=== PATIENT | male | born 1975 | race Caucasian/White ===

== ENCOUNTER 2016-06-13 23:40 | Inpatient (IN) | payer OTHER ==
--- NOTE | 2016-05-26 22:30 | NUR ---
PATIENT IS CURRENTLY RESTING IN BED NEEDS MET SLEEPING ON AND OFF.CALL LIGHT WITHIN REACH. Addendum: 06/16/16 at 0236 by Tiffany Goins LVN WRONG ENTRY
[~2016-06-13] VITALS: Ht 175.3 cm; Wt 107.5 kg
[2016-06-13 23:50] VITALS: BP 115/52
--- NOTE | 2016-06-13 23:50 | NUR ---
PT LENIN BLS. TAKEN TO BED 6
--- NOTE | 2016-06-13 23:50 | NUR ---
41Y M BIBA C/O LEFT LEG PAIN, SWELLING , AND AN OPEN WOUND .S/P POST OP 3.10. PATIENT ALERT AWAKE ORIENTED. THERE IS OPEN WOUNDS FROM BLISTER ON THE LEFT LEG THIGH AND CALF WITH SIGNS OF SWELLING . 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 ER MD MADE AWARE OF PT STATUS.
--- NOTE | 2016-06-14 00:12 | NUR ---
Dr. Andrew evaluating patient at bedside.
[2016-06-14] MEDS ORDERED: TUDORZA PR400 MCG/Ac IH (00:15)
[2016-06-14] MEDS ORDERED: HYDROmorphone PFS 2 MG/ML SYR IVP ONE (00:25)
[2016-06-14] MEDS ORDERED: NACL 0.9% 1,000 ML IV ONE (00:25)
[2016-06-14] MEDS ORDERED: PIPERACILLIN/TAZOBACTAM 3.375 GM in DEXTROSE 5% 50 ML IV ONE (00:40)
[2016-06-14] MEDS ORDERED: PREDNISONE20 MG PO (01:01)
[2016-06-14] MEDS ORDERED: MAGNESIUM OXID400 M1 PO (01:01)
[2016-06-14] MEDS ORDERED: POTASSIUM CHLO10 ME4 PO (01:01)
[2016-06-14] MEDS ORDERED: PROVENTIL2.5 MG/3 M INH (01:01)
[2016-06-14] MEDS ORDERED: PANTOPRAZOLE SO40 MG PO (01:01)
[2016-06-14] MEDS ORDERED: RANITIDINE HCL300 M1 PO (01:01)
[2016-06-14] MEDS ORDERED: LIDODERM5% TP (01:01)
[2016-06-14] MEDS ORDERED: AUGMENTIN 500 M1 TAB PO (01:01)
[2016-06-14] MEDS ORDERED: PRAZOSIN HYDROCH2 MG PO (01:01)
[2016-06-14] MEDS ORDERED: FLONASE NASAL50 MCG NS (01:01)
[2016-06-14] MEDS ORDERED: MASON NATURAL1000 IU PO (01:01)
[2016-06-14] MEDS ORDERED: [UNRECOGNIZED DRUG - CODE] PO (01:01)
[2016-06-14] MEDS ORDERED: PHENERGAN/CODEIN5 ML PO (01:01)
[2016-06-14] MEDS ORDERED: CLONAZEPAM0.5 MG PO (01:01)
[2016-06-14] MEDS ORDERED: PERCOCET 325 MG1 TA4 PO (01:01)
[2016-06-14] MEDS ORDERED: OXYCODONE HYDRO10 M2 PO (01:01)
[2016-06-14] MEDS ORDERED: BACTRIM DS 800/1 TAB PO (01:01)
[2016-06-14] MEDS ORDERED: IPRATROPIUM BR NEB (01:01)
[2016-06-14] MEDS ORDERED: REXULTI4 MG PO (01:01)
[2016-06-14] MEDS ORDERED: ASPIRIN81 M1 PO (01:01)
[2016-06-14] MEDS ORDERED: EPINEPHRINE IM (01:01)
[2016-06-14] MEDS ORDERED: SINGULAIR10 MG PO (01:01)
[2016-06-14] MEDS ORDERED: CUVITRU SQ (01:01)
[2016-06-14] MEDS ORDERED: LISINOPRIL2.5 M1 PO (01:01)
[2016-06-14] MEDS ORDERED: TEMAZEPAM30 MG PO (01:01)
[2016-06-14] MEDS ORDERED: ALPHAGAN P 5 ML5 M1 OP (01:01)
[2016-06-14] MEDS ORDERED: BUMEX1 MG PO (01:01)
[2016-06-14] MEDS ORDERED: METOPROLOL SUCC50 M1 PO (01:01)
[2016-06-14] MEDS ORDERED: NORVASC5 MG PO (01:01)
[2016-06-14] MEDS ORDERED: CYMBALTA60 MG PO (01:01)
[2016-06-14] MEDS ORDERED: IPRATROPIUM BR IH (01:01)
[2016-06-14] MEDS ORDERED: TIZANIDINE4 MG PO (01:01)
[2016-06-14] MEDS ORDERED: ZYRTEC10 MG PO (01:01)
[2016-06-14] MEDS ORDERED: LORAZEPAM0.5 M1 PO (01:01)
[2016-06-14] MEDS ORDERED: PROVENTIL HFA M18 GM INH (01:01)
[2016-06-14] MEDS ORDERED: THEOPHYLLINE PO (01:01)
[2016-06-14] MEDS ORDERED: GABAPENTIN600 MG PO (01:01)
[2016-06-14] MEDS ORDERED: ONDANSETRON4 M2 PO (01:01)
[2016-06-14] MEDS ORDERED: PIPERACILLIN/TAZOBACTAM 3.375 GM VIAL IV ONE ×2 (01:04→04:09)
--- NOTE | 2016-06-14 01:40 | NUR ---
Ultrasound at bedside.
[2016-06-14] MEDS ORDERED: NACL 0.9% 3,000 ML IV ONE (01:55)
[2016-06-14] MEDS ORDERED: ACETAMINOPHEN 325 MG TAB PO PRN (02:50)
[2016-06-14] MEDS ORDERED: ONDANSETRON 4 MG/2 ML VIAL IVP PRN (02:50)
[2016-06-14] MEDS ORDERED: VANCOMYCIN PER PHARMACY MC PRN (02:50)
[2016-06-14] MEDS ORDERED: HYDROcodone/APAP 7.5/325 MG 1 TAB PO PRN (02:50)
--- NOTE | 2016-06-14 02:56 | NUR ---
Patient will be admitted to care of DR SPRAGUE. Admited to MED-SURG. Will go to room 106A. Belongings list completed. Report to AUGUSTINE DAVID.
--- NOTE | 2016-06-14 02:59 | NUR ---
Note afua in EDM - 06/14/16 at 0300 by CATARINO Patient will be admitted to care of DR SPRAGUE. Admited to MED-SURG. Will go to [id number]. Belongings list completed. Report to AUGUSTINE DAVID.
[2016-06-14 03:05] VITALS: BP 128/70
--- NOTE | 2016-06-14 03:05 | NUR ---
PATIENT IS CURRENTLY AWAKE ALERT ORIENTED ADMIT DX POST-OP WND INFECTION AND CELLULITIS OF LEFT LEG PATIENT'S LT LEG WITH DRESSING AT THIS TIME.PATIENT HAS MULTIPLE ALLERGIES ALLERGY BAND APPLIED.PATIENT GAIT IS UNSTEADY BOTH LOWER EXTREMITIES WITH NON PITTING EDEMA NOTED.PATIENT HAS VERY DRY FEET AND HAS MULTIPLE PURPLISH DISCOLORATIONS TO HIS ABDOMEN PATIENT STATES,"HE WAS GETTING HEPARIN IN ANOTHER FACILITY AND HE TAKES ANOTHER MEDICATION SUBQTANEOUS WELL.PATIENT WAS GIVEN THE URINAL TO VOID AND PATIENT HAS BEEN USING IT.IV SITE REMAINS PATENT PLAN OF CARE DISCUSSED WITH THE PATIENT
[2016-06-14] MEDS: MORPHINE SULFATE 2 MG/ML SYR IVP PRN ×5 (03:47→19:25)
[2016-06-14] MEDS ORDERED: VANCOMYCIN 1GM/DEXT 5% PREMIX 400 ML IV SCH (04:00)
[2016-06-14] MEDS ORDERED: VANCOMYCIN 1,000 MG VIAL ONE ×2 (04:10→04:40)
--- NOTE | 2016-06-14 04:37 | NUR ---
GAVE PT 2G OF VANCO IN 500 ML D5% AT 170 ML/HR PER PHARMACY. PHARMACIST STATED THAT BASED ON PT'S WEIGHT THIS IS THE NEEDED DOSE. CHARGE NURSE AWARE.
--- NOTE | 2016-06-14 05:40 | NUR ---
PATIENT RESTING IN BED AT THIS TIME,WILL CONTINUE TO MONITOR.CALL LIGHT WITHIN REACH.
[2016-06-14] MEDS: PIPER/TAZO 3.375GM/D5W PREMIX 50 ML IV SCH ×3 (06:00→17:28)
--- NOTE | 2016-06-14 06:42 | NUR ---
0600 ZOSYN NOT GIVEN YET. VANCOMYCIN STILL INFUSING AT THIS TIME. WILL ENDORSED TO DAY SHIFT NURSE.
--- NOTE | 2016-06-14 07:13 | NUR ---
PATIENT HAS BEEN SCREENED AND CATEGORIZED MODERATE NUTRITION RISK. PATIENT WILL BE SEEN WITHIN 3-5 DAYS OF ADMISSION. 06/15/16-06/17/16 JAME NAVARRO MS, RDN Addendum: 06/16/16 at [address] CORRECTION ON DATE: 06/16/16-06/18/[address]
--- NOTE | 2016-06-14 07:25 | NUR ---
ENDORSED JOANN CAPONE THE SCHEDULED 0600 ZOSYN TO ADMINISTER WHEN VANCOMYCIN IS FINISHED.
--- NOTE | 2016-06-14 07:27 | NUR ---
PATIENT STABLE RESTING IN BED REPORT ENDORSED TO JOANN CAPONE.
--- NOTE | 2016-06-14 07:40 | NUR ---
RECEIVED PT LYING IN BED AAOX4, PLEASANT AND COOPERATIVE. C/O PAIN 7/10 IN HIS LEFT LOWER EXTREMITY AND SAME NOTED TO BE SWOLLEN WITH DRESSINGS TO THIGH AND LEG AREAS. SAME NOTED TO BE DRY AND INTACT. SHIFT ASSESSMENT DONE AND CHARTED. WILL MEDICATE PT FOR PAIN PER PRN ORDER. PLAN OF CARE, MEDS, TREATMENTS AND SAFETY DISCUSSED WITH PT AND PT VERBALIZED UNDERSTANDING. WILL CONTINUE TO MONITOR PT.
[2016-06-14 08:00] VITALS: BP_SYST 105; BP_SYST 139; BP_DIAS 66; BP_DIAS 84
--- NOTE | 2016-06-14 08:10 | NUR ---
DR. SPRAGUE WAS IN TO SEE PT AND MD LEFT NEW ORDERS. PT'S DRESSINGS TO LT UPPER THIGH NOTED TO BE WET AND SAME CHANGED . PT TOLERATED THE PROCEDURE WELL. WILL CONTINUE TO MONITOR PT.
--- NOTE | 2016-06-14 08:43 | NUR ---
PT MEDICATED WITH MORPHINE 2 MG IVP PER PRN ORDER FOR C/O LEFT LOWER EXTREMITY PAIN 09/15. SAME EXTREMITY NOTED TO BE EDEMATOUS.
[2016-06-14] MEDS ORDERED: VANCOMYCIN 1GM/DEXT 5% PREMIX 200 ML IV SCH (09:00)
--- NOTE | 2016-06-14 09:15 | NUR ---
PT NOTED TO HAVE HIS EYES CLOSED WHEN CHECKED. PT STATED THAT HIS PAIN WAS STILL THERE BUT BETTER THAN EARLIER 07/16.
[2016-06-14] MEDS ORDERED: NON-FORMULARY ITEM (Oxycodone HCl/Acetaminophen (Percocet 10-325 mg Tablet) 1 TAB) PO PRN (11:25)
[2016-06-14] MEDS ORDERED: ONDANSETRON 4 MG ODT PO PRN (11:25)
[2016-06-14] MEDS ORDERED: ALBUTEROL HFA MDI 90 MCG/ACTUATION 8 GM INH PRN (11:25)
[2016-06-14] MEDS ORDERED: [UNRECOGNIZED DRUG - OTHER] SQ SCH (11:25)
[2016-06-14] MEDS ORDERED: IMMUNE GLOBULIN SQ SCH (11:25)
[2016-06-14] MEDS ORDERED: EPINEPHRINE IM PRN (11:25)
[2016-06-14] MEDS ORDERED: IPRATROPIUM 0.02% 0.5 MG/2.5 ML NEBU INH PRN (11:25)
--- NOTE | 2016-06-14 12:30 | NUR ---
PT TOOK DIET AND FLUIDS WELL. NO CHANGES NOTED IN PT'S CONDITION.
[2016-06-14] MEDS ORDERED: NON-FORMULARY ITEM (Potassium Chloride 1 CAP) PO SCH (13:00)
[2016-06-14] MEDS: clonazePAM 0.5 MG TAB PO SCH ×2 (13:00→17:25)
[2016-06-14] MEDS ORDERED: NON-FORMULARY ITEM (Brimonidine Tartrate* (Alphagan P 0.1% Ophthalmic Soln*) 1 DROP) OP SCH (13:00)
[2016-06-14] MEDS ORDERED: OXYCODONE HCL PO SCH ×2 (13:00)
[2016-06-14] MEDS ORDERED: GABAPENTIN PO SCH (13:00)
--- NOTE | 2016-06-14 13:24 | NUR ---
PT MEDICATED WITH MORPHINE PER PRN ORDER IVP FOR LEFT LOWER EXTREMITY PAIN 10/16. DRESSINGS TO LEFT THIGH NOTED TO BE SOAKED AGAIN WITH CLEAR TO LIGHT YELLOW DRAINAGE AND SAME CLEANSED WITH NORMAL SALINE AND WET TO DRY DRESSINGS, ABDOMINAL PAD AND KERLIX APPLIED TO SITE. WILL CONTINUE TO CHECK ON PT.
[2016-06-14] MEDS: ALBUTEROL 0.083% 2.5 MG/3 ML NEBU INH SCH ×2 (13:27→19:17)
[2016-06-14] MEDS: IPRATROPIUM 0.02% 0.5 MG/2.5 ML NEBU INH SCH ×2 (13:27→19:17)
--- NOTE | 2016-06-14 14:00 | NUR ---
PT STATED THAT HIS PAIN WAS 6/10 WHEN CHECKED. WILL CONTINUE TO CHECK PT.
[2016-06-14] MEDS: tiZANidine 4 MG TAB PO SCH ×2 (15:22→19:22)
--- NOTE | 2016-06-14 15:23 | NUR ---
PT MEDICATED WITH MORPHINE PER PRN ORDER FOR LEFT THIGH PAIN 09/15. WILL CONTINUE TO CHECK PT.
--- NOTE | 2016-06-14 16:30 | NUR ---
DR. MALDONADO WAS IN TO SEE PT AND SAW PT'S WOUND AND PUT PACKING IN LEFT THIGH WOUND. ABDOMINAL PAD AND ELASTIC BANDAGE APPLIED TO SITE. LEFT LEG WOUNDS ALSO COVERED WITH DRY DRESSINGS AND ABDOMINAL PADS AND ELASTIC BANDAGE APPLIED. PT TOLERATED IT WELL.
[2016-06-14] MEDS ORDERED: TEMAZEPAM 15 MG CAP PO PRN (18:55)
[2016-06-14] MEDS ORDERED: oxyCODONE/APAP 5/325 MG 1 TAB TAB PO PRN (18:55)
--- NOTE | 2016-06-14 19:25 | NUR ---
REPORT GIVEN TO AUGUSTINE WAY AT BEDSIDE. PT RECEIVING BREATHING TREATMENT AT THE TIME. PT MEDICATED FOR PAIN 8/10 IN HIS LEFT LOWER EXTREMITY WITH MORPHINE PER PRN ORDER.
--- NOTE | 2016-06-14 19:30 | NUR ---
PATIENT IS CURRENTLY AWAKE ALERT RESTING IN BED AT THIS TIME.DRESSING TO LT LOWER LEG AND LT THIGH IS CURRENTLY DRY AND INTACT.PATIENT CONTINUES TO USE THE URINAL AND IS ABLE TO MAKE NEEDS KNOWN.CALL LIGHT WITHIN REACH WILL CONTINUE TO MONITOR.
[2016-06-14 20:00] VITALS: BP 101/55
--- NOTE | 2016-06-14 20:00 | NUR ---
Patient's Plan of Care was discussed and reviewed with PORT STEWARD: AUGUSTINE POSEY
[2016-06-14] MEDS: PROMETH/CODEINE 6.25-10MG/5ML 5 ML UDC PO SCH (20:40)
[2016-06-14] MEDS: BUMETANIDE 1 MG TAB PO SCH (20:40)
--- NOTE | 2016-06-14 20:40 | NUR ---
EDUCATION GIVEN ON ROUTINE NIGHT MEDICATION AND PATIENT TOOK THE MEDICATION WELL.
[2016-06-14] MEDS: DULoxetine 30 MG CAPDR PO SCH (20:41)
[2016-06-14] MEDS: THEOPHYLLINE 300 MG TABER PO SCH (20:41)
[2016-06-14] MEDS ORDERED: TEMAZEPAM 30 MG PO SCH (21:00)
[2016-06-14] MEDS ORDERED: ACLIDINIUM BROMIDE 400 MCG IH SCH (21:00)
--- NOTE | 2016-06-14 21:00 | NUR ---
PATIENT DRESSING TO UPPER THIGH IS SOILED SEROSANGUINOUS DRAINAGE.I REMOVED THE DRESSING AND PACKING FROM THE LT THIGH CLEANED THE WOUND WITH NORMAL SALINE AND WET THE GAUZE TO PACK THE INNER THIGH WOUND, AND THEN I PLACED AN ABD PAD DRESSING OVER THE PACKING AND WRAPPED IT WITH ROLLER GAUZE.PATIENT TOLERATED PROCEDURE WELL. WILL CONTINUE TO MONITOR.
[2016-06-15] MEDS: tiZANidine 4 MG TAB PO SCH ×4 (00:26→18:26)
--- NOTE | 2016-06-15 00:30 | NUR ---
PATIENT IS SLEEPING AT THIS TIME.DRESSING TO LT THIGH AND LOWER LEG CURRENTLY DRY AND INTACT.CALL LIGHT WITHIN REACH WILL CONTINUE TO MONITOR.
[2016-06-15] MEDS: PIPER/TAZO 3.375GM/D5W PREMIX 50 ML IV SCH ×4 (00:57→17:34)
--- NOTE | 2016-06-15 02:08 | NUR ---
PATIENT SLEEPING QUIETLY IN BED NO PAIN OR DISCOMFORT NOTED.WILL CONTINUE TO MONITOR.
--- NOTE | 2016-06-15 04:45 | NUR ---
PATIENT STABLE SLEEPING,NEEDS CONTINUE TO BE MET PATIENT IN NO DISTRESS WILL CONTINUE TO MONITOR.CALL LIGHT WITHIN REACH.
[2016-06-15 05:00] VITALS: BP 95/59
[2016-06-15] MEDS: MORPHINE SULFATE 2 MG/ML SYR IVP PRN ×3 (05:15→20:32)
--- NOTE | 2016-06-15 06:30 | NUR ---
PATIENT AWAKE ALERT RESTING IN BED STABLE REPORT ENDORSED TO JOANN CAPONE AT BEDSIDE.
[2016-06-15] MEDS: ALBUTEROL 0.083% 2.5 MG/3 ML NEBU INH SCH ×2 (06:42→16:56)
[2016-06-15] MEDS: IPRATROPIUM 0.02% 0.5 MG/2.5 ML NEBU INH SCH ×5 (06:42→21:00)
--- NOTE | 2016-06-15 06:46 | NUR ---
PATIENT CURRENTLY GETTING A BREATHING TREATMENT.
--- NOTE | 2016-06-15 07:46 | NUR ---
RECEIVED PT AAOX4, PLEASANT AND COOPERATIVE. PT STATED THAT HIS PAIN IN HIS LEFT LOWER EXTREMITY WAS 7/10. PT WILL BE MEDICATED PER PRN ORDER. SHIFT ASSESSMENT DONE AND CHARTED. PLAN OF CARE, MEDS, TREATMENTS AND SAFETY DISCUSSED WITH PT AND PT VERBALIZED UNDERSTANDING. DRESSINGS TO LEFT LEG AND THIGH NOTED TO BE CLEAN, DRY AND INTACT AT THIS TIME. WILL CONTINUE TO CHECK ON PT.
[2016-06-15 08:00] VITALS: BP 99/72
[2016-06-15] MEDS: DULoxetine 30 MG CAPDR PO SCH ×2 (08:34→20:22)
[2016-06-15] MEDS: predniSONE 10 MG TAB PO SCH (08:34)
[2016-06-15] MEDS: CHOLECALCIFEROL 1,000 IU TAB PO SCH (08:35)
[2016-06-15] MEDS: PANTOPRAZOLE 40 MG TABEC PO SCH (08:35)
[2016-06-15] MEDS: oxyCODONE 10 MG TABER PO SCH ×3 (08:36→18:26)
[2016-06-15] MEDS: BUMETANIDE 1 MG TAB PO SCH ×2 (08:37→20:21)
[2016-06-15] MEDS: THEOPHYLLINE 300 MG TABER PO SCH ×2 (08:37→20:22)
[2016-06-15] MEDS: clonazePAM 0.5 MG TAB PO SCH ×3 (08:37→17:28)
[2016-06-15] MEDS: ASPIRIN 81 MG TAB.CHEW PO SCH (08:38)
[2016-06-15] MEDS: LORazepam 0.5 MG TAB PO SCH (08:38)
[2016-06-15] MEDS: POTASSIUM CHLORIDE 10 MEQ TABER PO SCH ×3 (08:39→17:23)
[2016-06-15] MEDS: MAGNESIUM OXIDE 400 MG TAB PO SCH (08:39)
[2016-06-15] MEDS: MONTELUKAST SODIUM 10 MG TAB PO SCH (08:40)
[2016-06-15] MEDS: amLODIPine 5 MG TAB PO SCH (09:00)
[2016-06-15] MEDS ORDERED: clonazePAM 0.5 MG TAB PO SCH (09:00)
[2016-06-15] MEDS ORDERED: BREXPIPRAZOLE 4 MG PO SCH (09:00)
[2016-06-15] MEDS ORDERED: predniSONE 20 MG TAB PO SCH ×2 (09:00)
[2016-06-15] MEDS ORDERED: CHOLECALCIFEROL 5000 UNIT PO SCH (09:00)
[2016-06-15] MEDS ORDERED: LORazepam 1 MG TAB PO SCH (09:00)
[2016-06-15] MEDS ORDERED: COMMUNICATION ORDER MC SCH (09:00)
[2016-06-15] MEDS: LISINOPRIL 10 MG TAB PO SCH (09:00)
[2016-06-15] MEDS ORDERED: NON-FORMULARY ITEM (Lisinopril 1 TAB) PO SCH (09:00)
[2016-06-15] MEDS ORDERED: NON-FORMULARY ITEM (Cetirizine HCl (Zyrtec) 1 TAB) PO SCH (09:00)
[2016-06-15] MEDS ORDERED: VITAMIN D 400 IU TAB PO SCH (09:00)
[2016-06-15] MEDS: GABAPENTIN 300 MG CAP PO SCH ×3 (10:05→17:23)
--- NOTE | 2016-06-15 12:31 | NUR ---
MORPHINE 2 MG IVP GIVEN PER PRN ORDER FOR C/O PAIN 8/ IN PT'S LT LOWER EXTREMITY. SAME NOTED TO BE EDEMATOUS. 1300 DOSE OF OXYCONTIN AND KLONOPIN NOT GIVEN THE INTERVAL BETWEEN THE DOSES WERE TOO CLOSE AND PT DID NOT WANT TO TAKE THEM AT THIS TIME. PT'S BP MED WERE NOT GIVEN PT STATED TO HOLD IT FOR NOW HIS BP IN AM WAS LOW AND PRESENT ONE WAS NORMAL. BP- 110/72 WILL CONTINUE TO MONITOR PT.
--- NOTE | 2016-06-15 13:00 | NUR ---
DR. SPRAGUE WAS IN TO SEE PT AND MD LEFT NEW ORDERS.
--- NOTE | 2016-06-15 13:45 | NUR ---
PT TRANSFERRED TO 119 A PER BED IN A STABLE CONDITION. PT'S LEFT THIGH DRESSINGS NOTED TO BE WET AND SAME REMOVED WITH PACKING NOTED TO HAVE SERO SANGIUNOUS DRAINAGE. NEW GAUZE PACKING APPLIED WITH NS PER MD'S ORDER AND ABDOMINAL PADS AND ELASTIC BANDAGE APPLIED AFTER. PT TOLERATED THE PROCEDURE WELL.
[2016-06-15] MEDS ORDERED: VANCOMYCIN 1,250 MG in DEXTROSE 5% 250 ML IV SCH (14:00)
[2016-06-15 16:00] VITALS: BP 132/71
--- NOTE | 2016-06-15 16:00 | NUR ---
PHONED DR. MALDONADO RE DISCHARGE ORDER MADE BY DR. SPRAGUE. CALLED BACK AND STATED THAT PT IS NOT READY TO BE DISCHARGED.
--- NOTE | 2016-06-15 17:30 | NUR ---
LT LEG WOUNDS DRESSINGS CHANGED WITH. NOTED SERO SANGUINOUS DRAINAGE FROM OLD DRESSINGS. WET TO DRY DRESSINGS ABDOMINAL PAD AND KERLIX APPLIED TO SITE. PT TOLERATED IT WELL.
[2016-06-15] MEDS: METOPROLOL SUCCINATE 50 MG TABER PO SCH (17:35)
--- NOTE | 2016-06-15 18:41 | NUR ---
PT TOOK DIET AND FLUIDS WELL. PT STATED THAT HIS PT WAS LESS AT THIS TIME 5/10 IN HIS LT LOWER EXTREMITY.
--- NOTE | 2016-06-15 19:15 | NUR ---
REPORT GIVEN TO INCOMING HYDROGEN POWER PLANT MANAGER AUGUSTINE. NO CHANGES NOTED IN PT'S CONDITION.
--- NOTE | 2016-06-15 19:16 | NUR ---
PATIENT IS CURRENTLY RESTING IN BED NEEDS MET DENIES PAIN AT THIS TIME,DRESSING TO LT THIGH DRESSING REMAINS INTACT AT THIS TIME.WILL CONTINUE TO MONITOR.CALL LIGHT WITHIN REACH.
[2016-06-15 20:00] VITALS: BP 143/85
--- NOTE | 2016-06-15 20:00 | NUR ---
Patient's Plan of Care was discussed and reviewed with CHILD CARE COOK: AUGUSTINE CONNELLY
[2016-06-15] MEDS: PROMETH/CODEINE 6.25-10MG/5ML 5 ML UDC PO SCH (20:25)
--- NOTE | 2016-06-15 21:54 | NUR ---
PT REFUSED TX, SECOND ATTEND, HE SAID THAT HE IS FEELING GOOD AND DOES NOT NEEDED TX, PT IS NOT IN ANY RESP DISTRESS , RN NOTIFIED,
--- NOTE | 2016-06-15 22:30 | NUR ---
PATIENT IS CURRENTLY RESTING IN BED NEEDS MET SLEEPING ON AND OFF.CALL LIGHT WITHIN REACH.
[2016-06-15] MEDS: VANCOMYCIN 1,250 MG in DEXTROSE 5% 250 ML IV SCH (22:59)
[2016-06-16] VITALS: BP 124/74
[2016-06-16] MEDS: tiZANidine 4 MG TAB PO SCH ×4 (00:48→17:13)
--- NOTE | 2016-06-16 00:58 | NUR ---
ROUNDS MADE PATIENT IS CURRENTLY STABLE DENIES PAIN DRESSING TO LT THIGH IS DRY AND INTACT AT THIS TIME WILL CONTINUE TO MONITOR.CALL LIGHT WITHIN REACH.
[2016-06-16] MEDS: PIPER/TAZO 3.375GM/D5W PREMIX 50 ML IV SCH ×4 (01:44→17:15)
--- NOTE | 2016-06-16 02:36 | NUR ---
PATIENT SLEEPING COMFORTABLY IN BED WILL CONTINUE TO MONITOR.
--- NOTE | 2016-06-16 04:34 | NUR ---
PATIENT SLEEPING COMFORTABLY IN BED WILL CONTINUE TO MONITOR.CALL LIGHT WITHIN REACH WILL CONTINUE TO MONITOR.
[2016-06-16] MEDS: MORPHINE SULFATE 2 MG/ML SYR IVP PRN (05:31)
--- NOTE | 2016-06-16 06:55 | NUR ---
PATIENT CURRENTLY STABLE RESTING IN BED.CALL LIGHT WITHIN REACH.
[2016-06-16] MEDS ORDERED: IPRATROPIUM 0.02% 0.5 MG/2.5 ML NEBU INH PRN (07:06)
--- NOTE | 2016-06-16 07:15 | NUR ---
PATIENT STABLE RESTING IN BED REPORT ENDORSED TO JOANN ALVARADO SHE WILL RESUME CARE OF THE PATIENT.
--- NOTE | 2016-06-16 07:16 | NUR ---
RECEIVED REPORT FROM THE ARCHIVAL RECORDS CLERK NURSE AT BEDSIDE. PT IS ASLEEP. NO SIGNS OF DISTRESS. WILL BE BACK TO ASSESS PT.
[2016-06-16] MEDS: IPRATROPIUM 0.02% 0.5 MG/2.5 ML NEBU INH SCH ×3 (07:59→19:20)
[2016-06-16 08:00] VITALS: BP 111/65
[2016-06-16] MEDS: POTASSIUM CHLORIDE 10 MEQ TABER PO SCH ×3 (08:47→17:12)
[2016-06-16] MEDS: ASPIRIN 81 MG TAB.CHEW PO SCH (08:47)
[2016-06-16] MEDS: BUMETANIDE 1 MG TAB PO SCH ×2 (08:47→20:29)
[2016-06-16] MEDS: MONTELUKAST SODIUM 10 MG TAB PO SCH (08:47)
[2016-06-16] MEDS: clonazePAM 0.5 MG TAB PO SCH ×3 (08:47→17:15)
[2016-06-16] MEDS: LORazepam 0.5 MG TAB PO SCH (08:48)
[2016-06-16] MEDS: GABAPENTIN 300 MG CAP PO SCH ×3 (08:48→17:12)
[2016-06-16] MEDS: amLODIPine 5 MG TAB PO SCH (08:49)
[2016-06-16] MEDS: LISINOPRIL 10 MG TAB PO SCH (08:49)
[2016-06-16] MEDS: METOPROLOL SUCCINATE 50 MG TABER PO SCH (08:49)
[2016-06-16] MEDS: LORATADINE 10 MG TAB PO SCH (08:50)
[2016-06-16] MEDS: THEOPHYLLINE 300 MG TABER PO SCH ×2 (08:50→20:34)
[2016-06-16] MEDS: MAGNESIUM OXIDE 400 MG TAB PO SCH (08:50)
[2016-06-16] MEDS: CHOLECALCIFEROL 1,000 IU TAB PO SCH (08:50)
[2016-06-16] MEDS: DULoxetine 30 MG CAPDR PO SCH ×2 (08:51→20:36)
[2016-06-16] MEDS: PANTOPRAZOLE 40 MG TABEC PO SCH (08:51)
[2016-06-16] MEDS: predniSONE 10 MG TAB PO SCH (08:52)
[2016-06-16] MEDS: oxyCODONE 10 MG TABER PO SCH ×3 (08:53→17:13)
[2016-06-16] MEDS: VANCOMYCIN 1,250 MG in DEXTROSE 5% 250 ML IV SCH ×2 (09:01→22:15)
--- NOTE | 2016-06-16 09:02 | NUR ---
ADMINISTERED MORNING MEDS. PT TOLERATED WELL. THE WOUND CARE NURSE IS HERE TO DO WOUND CONSULT.
--- NOTE | 2016-06-16 09:05 | NUR ---
WOUND CARE EVALUATION NOTES: REASON FOR EVALUATION: LEFT MEDIAL THIGH OPEN WOUND COMPLETE SKIN ASSESSMENT DONE ON THIS 41 Y/O MALE PATIENT [facility], WITH INITIAL DIAGNOSIS OF INFECTED POST OP WOUND LEFT THIGH. PAST MEDICAL HISTORY INCLUDE OBESITY, HYPERTENSION AND LLE CELLULITIS AND COMPARTMENT SYNDROME. ALL ABOVE INFORMATION WAS OBTAINED FROM THE ADMISSION H&P AND THE PATIENT HIMSELF. LABS ARE WBC 6.6, H/H 8.2/24.3, GLUCOSE 65, ALBUMIN 2.9, PT/INR 10.2/1.1 AND PTT 22.1. CURRENT MEDS INCLUDE VANCOMYCIN, OXYCONTIN, PREDNISONE, ATIVAN, ASPIRIN, CLONAZEPAM, ZOSYN AND NORCO. PATIENT IS AWAKE, ORIENTED TO PERSON, PLACE, DATE AND TIME. SKIN WARM TO TOUCH WNL, TOENAILS WNL, WITH HAIR GROWTH, +3 EDEMA TO LEFT FOOT, NO EDEMA TO RIGHT FOOT, +2 RIGHT PEDAL PULSE AND UNABLE TO PALPATE LEFT PEDAL PULSES DUE TO EDEMA. URINE AND BOWEL CONTINENT, ABLE TO MAKE HIS NEEDS KNOWN. ABLE TO TURN SELF WITH MINIMAL ASSISTANCE. INITIAL PLAN OF CARE AND PRESSURE PREVENTIVE MEASURES DISCUSSED, ABLE TO VERBALIZE UNDERSTANDING. INTEGUMENTARY: LEFT MEDIAL THIGH - SURGICAL - S/[facility] LEFT ANTERIOR LOWER EXTREMITY - SURGICAL LEFT LATERAL LE - SURGICAL RIGHT MEDIAL KNEE - PINK SCARRING RECOMMENDATIONS: -CLEANSE LEFT MEDIAL THIGH WITH NS AND GAUZE, PAT DRY, APPLY WOUND VAC BLACK FOAM DRESSING Q 3 DAYS AND PRN WITH SOILING/DISPLACEMENT. CHECK DRESSING PLACEMENT DAILY AND PRN WITH SOILING/DISPLACEMENT -CLEANSE LEFT ANTRIOR LOWER EXTREMITY WITH NS AND GAUZE, PAT DRY, COVER WITH XEROFORM, ABD PAD AND WRAP WITH TORSTEN Q 3 DAYS AND PRN WITH SOILING/DISPLACEMENT. CHECK DRESSING PLACEMENT DAILY -CLEANSE LEFT LATERAL LOWER EXTREMITY WITH NS AND GAUZE, PAT DRY, COVER WITH FOAM DRESSING AND WRAP WITH TORSTEN Q 3 DAYS AND PRN WITH SOILING/DISPLACEMENT. CHECK DRESSING PLACEMENT DAILY --TURN AND REPOSITION PATIENT Q2H -ASSESS AND MONITOR SKIN CONDITION DURING POSITION CHANGE, PLEASE PAY PARTICULAR ATTENTION TO SACRALCOCCYX, ELBOWS AND HEELS -OFFLOAD BILATERAL HEELS BY PLACING PILLOWS UNDER CALVES AT ALL TIMES, UNLESS OTHERWISE CONTRAINDICATED KEEP SKIN CLEAN AND DRY AT ALL TIMES. RECOMMENDATIONS DISCUSSED WITH PRIMARY RN AND SURGEON. WILL FOLLOW UP PATIENT Q 3 DAYS AND PRN. PLEASE CONTACT [facility] FOR ANY CONCERNS, QUESTIONS AND CHANGES IN SKIN CONDITION.
--- NOTE | 2016-06-16 10:40 | NUR ---
PT IS SITTING IN BED, ON THE PHONE. CANCELLING HIS 'S APPT FOR TODAY. MAKING OTHER APPOINTMENTS. WAITING FOR THE WOUND VAC (ETA AROUND NOON). WILL CONTINUE TO MONITOR PT.
[2016-06-16] MEDS ORDERED: FOAM DRESSING TP PRN (12:25)
[2016-06-16] MEDS ORDERED: OIL EMULSION DRESSING TP PRN (12:25)
--- NOTE | 2016-06-16 12:30 | NUR ---
MIX UP WITH LUNCH TRAY. IT WASN'T WHAT HE HAD ORDERED. I CALLED DIETARY AND REQUESTED A NEW TRAY. PT SITTING UP IN BED TALKING ON THE PHONE. NO COMPLAINTS AT THIS TIME. WILL CONTINUE TO MONITOR PT.
[2016-06-16] MEDS ORDERED: FOAM DRESSING TP SCH (13:00)
[2016-06-16] MEDS ORDERED: OIL EMULSION DRESSING TP SCH (13:00)
--- NOTE | 2016-06-16 14:08 | NUR ---
PT IS WITH SS.
--- NOTE | 2016-06-16 15:06 | NUR ---
1350 MET WITH PT AT BEDSIDE. STATED THAT HE IS CURRENTLY ON SERVICE WITH [facility] AND HE WANTS TO RESUME SERVICE WHEN DISCHARGED. INFORMED PT THAT I HAD RECEIVED A CALL FROM ELENA AT [facility] [phone] REQUESTING INFORMATION REGARDING HOSPITALIZATION AND CONDITION. ELENA HAD SAID THAT THEY HAD BEEN TRYING TO REACH PT AT HOME THEIR COMPANY MAKES HOME VISITS. INFORMED PT THAT I INFORMED ELENA THAT INFORMATION REGARDING PT'S HOSPITALIZATION COULD NOT BE GIVEN WITHOUT PT PERMISSION. PT STATED THAT [employer] IS A COMPANY WHOSE PURPOSE IS TO PROVIDE SERVICES AT HOME TO TRY TO PREVENT HOSPITALIZATIONS BUT HE STATED "THEY'RE NOT VERY HELPFUL AND DON'T COME OUT WHEN YOU NEED THEM. I DON'T WANT THEM TO HAVE ANY INFORMATION ABOUT ME". PT STATED THAT HE IS VERY PLEASED WITH HIS CARE AND IS AWARE THAT HE WILL BE HAVING A WOUND VAC APPLIED. DISCUSSED WITH HIM THAT PRIOR TO DISCHARGE ARRANGEMENTS FOR WOUND VAC WILL BE MADE AND ORDERS PROVIDED TO [facility].
--- NOTE | 2016-06-16 15:11 | NUR ---
IN WITH THE PT WITH GOLDIE, THE WOUND CARE NURSE. ASSISTED WITH THE WOUND VAC. EXTENSIVE EDUCATION ON THE USE. PT VERBALIZED UNDERSTANDING. PT TOLERATED WELL. WILL CONTINUE TO MONITOR PT.
--- NOTE | 2016-06-16 15:22 | NUR ---
WOUND CARE NOTES: WOUND VAC APPLIED TO LEFT MEDIAL THIGH. MACHINE FUNCTIONING WELL. PATIENT TOLERATED PROCEDURE WELL. CONCERNS AND QUESTIONS ANSWERED.
[2016-06-16 16:00] VITALS: BP 99/63
--- NOTE | 2016-06-16 17:00 | NUR ---
PT IS RESTING COMFORTABLY. NO SIGNS OF DISTRESS. NO COMPLAINTS. WILL CONTINUE TO MONITOR PT.
--- NOTE | 2016-06-16 19:30 | NUR ---
ENDORSED PT TO THE NIGHTSHIFT NURSE AT BEDSIDE FOR CONTINUITY OF CARE. PT IS IN STABLE CONDITION. WOUND VAC DRAINAGE AROUND 100ML.
--- NOTE | 2016-06-16 19:30 | NUR ---
RECD. RESTING IN BED, AWAKE, A/OX4. RESPIRATION EVEN AND UNLABORED. IV OF NS AT TKO INFUSING, RIGHT HAND G22. WOUND VAC CONNECTED TO LEFT THIGH WOUND DRAINING MODERATE AMOUNT OF VERY LIGHT ORANGE FLUID. INCISION IN THE LEFT THIGH WITH KARINA OPEN TO AIR DRY AND INTACT. WOUND IN THE LEFT LOWER LEG COVERED WITH DRESSING DRY AND INTACT. PAIN IN THE LEFT LEG 03/18, CLAIMED TOLERABLE. PLAN OF CARE FOR THE SHIFT DISCUSSED. VERBALIZED UNDERSTANDING.
[2016-06-16 20:00] VITALS: BP 130/72
--- NOTE | 2016-06-16 20:00 | NUR ---
Patient's Plan of Care was discussed and reviewed with CREPING MACHINE OPERATOR: MARQUES IZQUIERDO
[2016-06-16] MEDS: PROMETH/CODEINE 6.25-10MG/5ML 5 ML UDC PO SCH (20:34)
--- NOTE | 2016-06-16 22:15 | NUR ---
SLEEPING COMFORTABLY IN BED. VANCOMYCIN IVPB INFUSED BY JOANN KRUGER.
[2016-06-17] MEDS: PIPER/TAZO 3.375GM/D5W PREMIX 50 ML IV SCH ×4 (00:17→17:09)
--- NOTE | 2016-06-17 02:00 | NUR ---
AWAKE IN BED, REQUESTED FOR HOT WATER FOR CHOCOLATE DRINK.
[2016-06-17] MEDS: tiZANidine 4 MG TAB PO SCH ×4 (06:11→17:05)
[2016-06-17] MEDS: IPRATROPIUM 0.02% 0.5 MG/2.5 ML NEBU INH SCH ×3 (07:08→17:11)
[2016-06-17] MEDS: ALBUTEROL 0.083% 2.5 MG/3 ML NEBU INH PRN ×2 (07:09→17:12)
--- NOTE | 2016-06-17 07:25 | NUR ---
CONDITION REMAIN STABLE. ENDORSED TO JOANN SCHRADER FOR CONTINUITY OF CARE.
--- NOTE | 2016-06-17 07:26 | NUR ---
RECEIVED REPORT AT BEDSIDE FROM SCRIPT WORKER NURSE. PT IS AWAKE AND ORIENTED. PT WOUND VAC DRAINING WELL. 200ML IN MACHINE. HIS DRESSINGS STILL INTACT AND DRY. IV TKO. NO COMPLAINTS AT THIS TIME. WILL CONTINUE TO ASSESS PT.
--- NOTE | 2016-06-17 07:40 | NUR ---
BP LOW THIS MORNING. PT IS SITTING UP EATING HIS BREAKFAST. ALL OTHER V/S IS WITHIN NORMAL RANGE. WILL HOLD ALL BP MEDS THIS MORNING. PLAN FOR TODAY: WAIT FOR SS TO SET UP HOME DELIVERY OF WOUND VAC. THEN D/C. WILL CONTINUE TO MONITOR PT.
[2016-06-17 08:00] VITALS: BP 88/53
[2016-06-17] MEDS: clonazePAM 0.5 MG TAB PO SCH ×3 (09:00→17:09)
[2016-06-17] MEDS: LISINOPRIL 10 MG TAB PO SCH (09:00)
[2016-06-17] MEDS: MAGNESIUM OXIDE 400 MG TAB PO SCH (09:19)
[2016-06-17] MEDS: predniSONE 10 MG TAB PO SCH (09:20)
[2016-06-17] MEDS: GABAPENTIN 300 MG CAP PO SCH ×3 (09:20→17:04)
[2016-06-17] MEDS: THEOPHYLLINE 300 MG TABER PO SCH (09:21)
[2016-06-17] MEDS: MONTELUKAST SODIUM 10 MG TAB PO SCH (09:21)
[2016-06-17] MEDS: CHOLECALCIFEROL 1,000 IU TAB PO SCH (09:21)
[2016-06-17] MEDS: BUMETANIDE 1 MG TAB PO SCH (09:22)
[2016-06-17] MEDS: LORazepam 0.5 MG TAB PO SCH (09:22)
[2016-06-17] MEDS: POTASSIUM CHLORIDE 10 MEQ TABER PO SCH ×3 (09:23→17:05)
[2016-06-17] MEDS: LORATADINE 10 MG TAB PO SCH (09:23)
[2016-06-17] MEDS: DULoxetine 30 MG CAPDR PO SCH (09:23)
[2016-06-17] MEDS: PANTOPRAZOLE 40 MG TABEC PO SCH (09:23)
[2016-06-17] MEDS: amLODIPine 5 MG TAB PO SCH (09:24)
[2016-06-17] MEDS: METOPROLOL SUCCINATE 50 MG TABER PO SCH (09:24)
[2016-06-17] MEDS: ASPIRIN 81 MG TAB.CHEW PO SCH (09:24)
[2016-06-17] MEDS: oxyCODONE 10 MG TABER PO SCH ×3 (09:25→17:05)
--- NOTE | 2016-06-17 09:30 | NUR ---
ADMINISTERED MORNING MEDS. PT TOLERATED WELL. HELD BP MEDS. PAIN LEVEL ABOUT 6. WILL CONTINUE TO MONITOR PT. Addendum: 06/17/16 at 1011 by Sosa Hines RN PER PHARMACY TO HOLD VANCO AT 1000. NEED TO WAIT FOR VANCO TROUGH THIS MORNING.
--- NOTE | 2016-06-17 10:50 | NUR ---
LAB CALLED: CRITICAL VANCO TROUGH AT 16.8 NOTIFIED PHARMACY TO TITRATE
[2016-06-17] MEDS ORDERED: VANCOMYCIN 1GM/DEXT 5% PREMIX 200 ML IV SCH (11:00)
--- NOTE | 2016-06-17 11:30 | NUR ---
BRIT NOTE INITIAL REVIEW AND ORDER FOR HH FOR WOUND CARE AND WOUND VAC SENT TO [facility] FAX# [phone] PH# AUGUST [phone]. CALLED BRIT AUGUST AND LEFT HER A VOICEMAIL Addendum: 06/17/16 at 1144 by Sandra Waite CM SPOKE WITH BRIT AUGUST OF [facility] PH# [phone], FOR [facility] AUTH# [id number], [facility] FOR WOUND VAC AUTH# [id number]. PER BRIT AUGUST, SHE WILL SEND THE AUTH FOR TRANSITION CARE MANAGEMENT DIRECTLY TO [facility]. ELIZABETH BEAVERS
--- NOTE | 2016-06-17 11:32 | NUR ---
SS NOTE: SENT PT INFORMATION AND MD ORDER FOR WOUND VAC TO [facility], RECEIVED FAX CONFIRMATION (C: [phone], F: [phone])
--- NOTE | 2016-06-17 12:10 | NUR ---
SS NOTE: I SPOKE WITH LAINA FROM [facility] ([phone]). I PROVIDED HIM WITH THE AUTH NUMBER GIVEN BY [facility] CM AUGUST. HE STATED THAT HE WILL CONTACT THE PT TODAY TO SCHEDULE A NURSE TO SEE PT AT HOME TOMORROW.
--- NOTE | 2016-06-17 14:07 | NUR ---
SS NOTE: PER EUSEBIO FROM [facility] ([phone] EXT. [phone]), IN ORDER FOR THEM TO DISPENSE PT'S WOUND VAC, THE [facility] THERAPY INSURANCE AUTHORIZATION FORM MUST BE COMPLETED AND THEN SIGNED BY PT'S ORDERING PHYSICIAN. BRIT BEAVERS.
--- NOTE | 2016-06-17 15:00 | NUR ---
DID WOUND CARE. DRAINAGE SOILED THE DRESSING. REMOVED ALL DRESSING AND CLEANED AND DRIED THE WOUND AND RE-WRAPPED LOWER L LEG. PT TOLERATED WELL. WILL CONTINUE TO MONITOR.
--- NOTE | 2016-06-17 15:56 | NUR ---
SS NOTE: COMPLETED AND SIGNED [facility] THERAPY INSURANCE AUTH FORM SENT TO [phone], RECEIVED FAX CONFIRMATION
[2016-06-17 16:00] VITALS: BP 103/67
--- NOTE | 2016-06-17 16:08 | NUR ---
CM NOTE PER BRIT NDIAYE [facility]IA [facility] AUTH# [id number] GOING TO PATIENT'S NEW ADDRESS [address] [place] [address]. SPOKE WITH JACKELINE OF [facility] PH# [phone], PROJECT CONTROL MANAGER TIME 2100 TODAY. CHARGE NURSE JIMENEZ BEAVERS EXT [phone]
--- NOTE | 2016-06-17 16:18 | NUR ---
SS NOTE: PER AMADOU FROM [facility] ([phone] EXT. [phone]), PT'S WOUND VAC WILL BE DELIVERED TODAY BEDSIDE WITH AN ESTIMATED ETA OF 3-4 HOURS. AIRCRAFT LOADMASTER SUPERINTENDENT ALEM AND BRIT AMEZCUA AWARE.
--- NOTE | 2016-06-17 19:10 | NUR ---
ENDORSED PT TO THE WOUND CARE NURSE NURSE AT BEDSIDE FOR CONTINUITY OF CARE. PT IS STABLE. D/C PROCESS PAPER ALL DONE. READY TO BE SIGNED BY PT. WOUND VAC HERE. SHANTELL IS SCHEDULED TO COME AT 9PM. WOUND CARE NURSE HAS TO DO WOUND PICTURES AND REPACK WOUND. GAVE INSTRUCTIONS TO NURSE. Addendum: 06/17/16 at 2009 by Sosa Hines RN WEEK WORTH OF DRESSING GIVEN TO PT.
--- NOTE | 2016-06-17 19:12 | NUR ---
RECD. SITTING ON BED, AWAKE, A/OX4. RESPIRATION EVEN AND UNLABORED. IV SALINE LOCK AT THE RIGHT HAND G 22, PATENT AND INTACT. WOUND VAC IN THE LEFT THIGH DRAINING LIGHT ORANGE YELLOW FLUID BY PUMP. INCISION IN THE LEFT LOWER LEG COVERED WITH DRESSING DRY AND INTACT. OLD SCAR OF INCISION IN THE LEFT LATERAL SIDE OF LEFT THIGH DRY. ADDITIONAL DISCHARGE INSTRUCTIONS GIVEN. VERBALIZED UNDERSTANDING. IV SALINE LOCK TAKEN OUT. DENIES PAIN 0/10.
[2016-06-17 20:00] VITALS: BP 109/54
--- NOTE | 2016-06-17 20:30 | NUR ---
DRESSINGS OF INCISIONS IN THE LEFT LOWER EXTREMITY TAKEN OUT, PICTURES TAKEN AND NEW DRESSINGS PUT ON. TURN OFF WOUND VAC AND DRAINAGE CONTAINER PUT IN RED BAG. CLEANSED WITH NS WOUND IN THE LEFT THIGH AFTER TAKING OFF WOUND VAC AND APPLIED DRESSING WITH HELP OF [employer]. PATIENT TOLERATED PROCEDURE WELL.
--- NOTE | 2016-06-17 21:30 | NUR ---
REPORT GIVEN TO [facility] P[facility].
--- NOTE | 2016-06-17 21:45 | NUR ---
PATIENT GOT READY ALL HIS BELONGINGS TOGETHER WITH THE NEWLY DELIVERED WOUND VAC IN A BOX TO BE TAKEN HOME.
--- NOTE | 2016-06-17 22:10 | NUR ---
TAKEN TO ER LOBBY PARKING VIA GURNEY IN STABLE CONDITION ACCOMPANIED BY AMBULANCE PERSONNEL FOR DISCHARGE TO HOME.
== END 2016-06-17 22:10 | disposition home health service (06) | DRG 383 ==
LOC: MED 23:40 → MTU 06-14 02:17
PROVIDERS: ADMIT Hospitalist; ATTEND Hospitalist
PROC: 0Y9D0ZZ Drainage of Left Upper Leg, Open Approach (ICD-10-PCS; principal; 2016-06-14)
PROC: 2W1PX6Z Compression of Left Upper Leg using Pressure Dressing (ICD-10-PCS; 2016-06-16)
DX: L03.116 Cellulitis of left lower limb (principal); N17.9 Acute kidney failure, unspecified; E87.2 Acidosis; D83.9 Common variable immunodeficiency, unspecified; T81.30XA Disruption of wound, unspecified, initial encounter; E24.9 Cushing's syndrome, unspecified; T79.A22A Traumatic compartment syndrome of left lower extremity, initial encounter; I10 Essential (primary) hypertension; D63.8 Anemia in other chronic diseases classified elsewhere; S71.102A Unspecified open wound, left thigh, initial encounter; E78.5 Hyperlipidemia, unspecified; M72.9 Fibroblastic disorder, unspecified; G47.33 Obstructive sleep apnea (adult) (pediatric); F41.9 Anxiety disorder, unspecified; J45.909 Unspecified asthma, uncomplicated; K21.9 Gastro-esophageal reflux disease without esophagitis; M60.9 Myositis, unspecified; E66.9 Obesity, unspecified; Z91.041 Radiographic dye allergy status; Z91.013 Allergy to seafood; Z88.8 Allergy status to other drugs, medicaments and biological substances; Z91.018 Allergy to other foods; Z90.49 Acquired absence of other specified parts of digestive tract; Z68.35 Body mass index [BMI] 35.0-35.9, adult; Z79.82 Long term (current) use of aspirin

== ENCOUNTER 2016-06-22 13:11 | Emergency (ER) | payer OTHER ==
[~2016-06-22] VITALS: Ht 175.3 cm; Wt 108.0 kg
[~2016-06-22 13:11] MED LIST: ACET-3783 PO; ACLI400A1 IH; ALBU0.0912 INH; AMLO5TAB PO; AMOX-999 PO; ASPI81CT89 PO; BREX4TAB PO; BRIM5SOL3 OP; BUME1TAB4 PO; CETI-32 PO; CHOL100013 PO; CLON0.5T3 PO; CODE118S2 PO; DULO60EC PO; FLONAS NS; GABA600T7 PO; IPRA2.5S49 IH; IPRA2.5S49 NEB; LIDO5TDM3 TP; LISI2.5T5 PO; LORA0.5T6 PO; MAGN400T7 PO; METO50TE14 PO; MONT10TA35 PO; NYST100022 PO; ONDA4ODT2 PO; OXYC10TA PO; PANT40EC28 PO; POTA10CE85 PO; PRAZ2CAP PO; PRED20TA5 PO; PRON INH; SULF1TAB12 PO; TEMA30CA12 PO; TIZA4TAB3 PO; [UNRECOGNIZED DRUG - CODE] IM; [UNRECOGNIZED DRUG - CODE] PO; [UNRECOGNIZED DRUG - CODE] PO; [UNRECOGNIZED DRUG - OTHER] SQ
--- NOTE | 2016-06-22 13:11 | NUR ---
Patient BIBA BLS, transferred to bed 3. RN evaluating patient at bedside.
--- NOTE | 2016-06-22 13:20 | NUR ---
Dr. Yee evaluating patient at bedside.
[2016-06-22 13:26] VITALS: BP 136/74
--- NOTE | 2016-06-22 13:40 | NUR ---
41/M BIBA FOR C/O SEAPING WOUND TO LEFT LEG. PT STATES HE HAD SURGERY ON LEFT LEG AROUND MAY 16 AT [facility] [address] PT HAS WOUND VAC ON UPPER LEFT INNER THIGH AND 2 INCISIONS ON LEFT LOWER LEG. PT STATES WOUNDS ARE LEAKING FLUIDS. DENIES PAIN AT THIS TIME. WOUND VAC INCISION IS DOES NOT HAVE A PROPER SEAL. PT APPEARS TO BE SLURRING HIS SPEECH DUE TO SELF MEDICATING AT HOME. LUNGS CLEAR BILAT. NO SIGNS OF RESP. DEPRESSION. HR EVEN AND REGULAR. AAOX4. VSS. NO SIGNS OF DISTRESS.
[2016-06-22] MEDS ORDERED: VANCOMYCIN 1,000 MG in DEXTROSE 5% 250 ML IV ONE (13:50)
[2016-06-22] MEDS ORDERED: VANCOMYCIN 1,000 MG VIAL ONE (13:55)
--- NOTE | 2016-06-22 15:00 | NUR ---
Patient appears to be resting comfortably in bed. Vital Signs within normal limits. Respirations even and unlabored.
[2016-06-22 16:36] VITALS: BP 109/63
--- NOTE | 2016-06-22 16:37 | NUR ---
Patient discharged with v/s stable. Written and verbal after care instructions given and explained. Patient verbalized understanding. Wheel Chair Assisted with to car. All questions addressed prior to discharge. Advised to follow up with PMD.
== END 2016-06-22 16:31 | disposition home or self-care (01) ==
LOC: MED 13:11
DX: L03.116 Cellulitis of left lower limb (principal); J45.909 Unspecified asthma, uncomplicated; I10 Essential (primary) hypertension; Z87.2 Personal history of diseases of the skin and subcutaneous tissue; Z79.82 Long term (current) use of aspirin; Z79.899 Other long term (current) drug therapy; Z88.8 Allergy status to other drugs, medicaments and biological substances
CPT/HCPCS: 96365; 96366; 99285; J3370

== ENCOUNTER 2019-08-10 23:53 | Emergency (ER) | payer OTHER ==
[~2019-08-10] VITALS: Ht 175.3 cm; Wt 108.4 kg
[~2019-08-10 23:53] MED LIST changes: -ACET-3783 PO; +ACET-5636 PO; -ACLI400A1 IH; +ACLI400A2 IH; -AMOX-999 PO; +ASPI-1822 PO; -ASPI81CT89 PO; -BUME1TAB4 PO; +BUME1TAB92 PO; +CETI-120 PO; -CETI-32 PO; +GABA600T11 PO; -GABA600T7 PO; -LIDO5TDM3 TP; +LIDO5TDM59 TP; +METO-747 PO; -METO50TE14 PO; -TIZA4TAB3 PO; +TIZA4TAB5 PO; +[UNRECOGNIZED DRUG - CODE] IM; -[UNRECOGNIZED DRUG - CODE] IM; +[UNRECOGNIZED DRUG - CODE] PO; -[UNRECOGNIZED DRUG - CODE] PO
[2019-08-10 23:55] VITALS: BP 127/72
[2019-08-11] MEDS ORDERED: KETOROLAC 30 MG/ML VIAL IM ONE (00:50)
[2019-08-11 01:05] LABS: BASOPHILS % (AUTO) 0.2 % (0.0-2.0); HEMATOCRIT 42.3 % (36-52); HEMOGLOBIN 14.8 g/dL (12.0-18.0); LYMPHOCYTES # (AUTO) 2.2 K/uL (2.0-11.5); LYMPHOCYTES % (AUTO) 30.9 % (20.5-51.1); MEAN CORPUSCULAR HEMOGLOBIN 32 pg (27-31); MEAN CORPUSCULAR HGB CONC 35 g/dL (33-37); MEAN CORPUSCULAR VOLUME 92.5 fL (80-94); MONOCYTES # (AUTO) 0.6 K/uL (0.8-1.0); MONOCYTES % (AUTO) 8.3 % (1.7-9.3); NEUTROPHILS # (AUTO) 4.4 K/uL (1.8-7.7); NEUTROPHILS % (AUTO) 60.6 % (42.2-75.2); PLATELET COUNT (AUTO) 230 K/uL (140-450); RED BLOOD CELL COUNT(AUTO) 4.58 MIL/uL (4.20-6.10); RED CELL DISTRIBUTION WIDTH 13.6 % (11.6-13.7); WHITE BLOOD COUNT (AUTO) 7.3 K/uL (4.8-10.8)
[2019-08-11 01:21] LABS: ALBUMIN 3.9 g/dL (3.4-5.0); ANION GAP 15.6 (8-16); CARBON DIOXIDE 25.4 mmol/L (21-32); CREATININE 1.1 mg/dL (0.6-1.3); TOTAL BILIRUBIN 0.2 mg/dL (0.0-1.0)
[2019-08-11 01:25] LABS: PROTHROMBIN TIME 11.2 secs (10.8-13.4)
[2019-08-11 01:44] LABS: D-DIMER < 100 ng/ml (0-400)
[2019-08-11] MEDS ORDERED: traMADol 50 MG TAB PO ONE (03:20)
[2019-08-11 04:06] VITALS: BP 126/74
[2019-08-11 04:32] LABS: CKMB RELATIVE INDEX 1.2 (0.0-2.5)
[2019-08-11 04:39] LABS: CREATINE KINASE MB 27.8 ng/mL (0-3.6)
== END 2019-08-11 04:06 | disposition home or self-care (01) ==
LOC: MED 23:53
DX: M25.572 Pain in left ankle and joints of left foot (principal); J45.909 Unspecified asthma, uncomplicated; I10 Essential (primary) hypertension; R74.8 Abnormal levels of other serum enzymes; Z79.899 Other long term (current) drug therapy; Z88.8 Allergy status to other drugs, medicaments and biological substances
CPT/HCPCS: 36415; 73610; 80053; 82550; 82553; 85025; 85379; 85610; 85730; 93971; 96372; 99284; J1885; Q0092; 99283

== ENCOUNTER 2020-02-07 23:01 | Emergency (ER) | payer OTHER ==
[~2020-02-07] VITALS: Ht 175.3 cm; Wt 77.6 kg
[~2020-02-07 23:01] MED LIST changes: -CETI-120 PO; +CETI10TA81 PO; -PANT40EC28 PO; +PANT40EC56 PO; +THE300 PO; -[UNRECOGNIZED DRUG - CODE] PO
[2020-02-07 23:25] VITALS: BP 133/82
[2020-02-08 00:13] LABS: BASOPHILS # (AUTO) 0.1 K/uL (0.00-0.22); BASOPHILS % (AUTO) 0.9 % (0.0-2.0); HEMATOCRIT 38.1 % (36-52); HEMOGLOBIN 13.2 g/dL (12.0-18.0); LYMPHOCYTES # (AUTO) 1.5 K/uL (2.0-11.5); LYMPHOCYTES % (AUTO) 26.4 % (20.5-51.1); MEAN CORPUSCULAR HEMOGLOBIN 32 pg (27-31); MEAN CORPUSCULAR HGB CONC 35 g/dL (33-37); MEAN CORPUSCULAR VOLUME 91.7 fL (80-94); MONOCYTES # (AUTO) 0.4 K/uL (0.8-1.0); MONOCYTES % (AUTO) 7.3 % (1.7-9.3); NEUTROPHILS # (AUTO) 3.7 K/uL (1.8-7.7); NEUTROPHILS % (AUTO) 65.4 % (42.2-75.2); PLATELET COUNT (AUTO) 233 K/uL (140-450); RED BLOOD CELL COUNT(AUTO) 4.15 MIL/uL (4.20-6.10); RED CELL DISTRIBUTION WIDTH 12.9 % (11.6-13.7); WHITE BLOOD COUNT (AUTO) 5.6 K/uL (4.8-10.8)
[2020-02-08 00:26] LABS: ANION GAP 11.6 (8-16); CARBON DIOXIDE 29.9 mmol/L (21-32); CREATININE 1.1 mg/dL (0.6-1.3); POTASSIUM 3.5 mmol/L (3.5-5.1)
--- NOTE | 2020-02-08 00:30 | NUR ---
PT TAKEN TO BED 4 VIA WHEELCHAIR
--- NOTE | 2020-02-08 00:33 | NUR ---
PT COMING IN TODAY WITH C/O POSSIBLE DVT TO LEFT ANKLE. PT HAS HAD PAIN AND SWELLING TO LEFT FOOT ANKLE AND CALF. VERY PAINFUL TO TOUCH AND PT UNABLE TO WALK ON LEG. LARGE AMOUNT OF SWELLING NOTED TO FOOT AND ANKLE, SOME REDNESS NOTED. PT HAD NECROTIZING FASCIITIS TO LEFT LEG AND SINCE THEN HAS HAD 3 DVT'S TO L ANKLE. PT STATES HIS CURRENT SYMPTOMS ARE THE SAME FROM PREVIOUS DVT'S. PT UNABLE TO WALK ON LEG DUE TO PAIN LEVEL. PT DENIES SOB, AFEBRILE. BED IN LOWEST POSITION AND SIDERAIL UP X 1.
--- NOTE | 2020-02-08 00:33 | NUR ---
DR GRANADO AT BEDSIDE SPEAKING WITH PT.
[2020-02-08] MEDS ORDERED: MORPHINE SULFATE 2 MG/ML SYR IVP ONE (00:40)
--- NOTE | 2020-02-08 01:12 | NUR ---
PT STILL HAVING PAIN AFTER REHANA GIVEN, MD GRANADO AWARE
--- NOTE | 2020-02-08 01:19 | NUR ---
US BEING PERFORMED AT BEDSIDE AT THIS TIME.
[2020-02-08] MEDS ORDERED: MORPHINE SULFATE 4 MG/ML SYR IVP ONE (01:25)
[2020-02-08 01:40] LABS: CKMB RELATIVE INDEX 2.8 (0.0-2.5)
--- NOTE | 2020-02-08 01:51 | NUR ---
MD GRANADO AT BEDSIDE
[2020-02-08] MEDS ORDERED: NACL 0.9% 1,000 ML IV ONE ×2 (02:10→02:55)
[2020-02-08 02:49] LABS: APPEARANCE,URINE SL CLOUDY (CLEAR); BILIRUBIN,URINE NEGATIVE (NEGATIVE); BLOOD, URINE NEGATIVE (NEGATIVE); COLOR,URINE YELLOW (YELLOW); LEUKOCYTE ESTERASE ,URINE NEGATIVE (NEGATIVE); NITRITE, URINE NEGATIVE (NEGATIVE); UGLUCOSE NEGATIVE (NEGATIVE)
--- NOTE | 2020-02-08 03:15 | NUR ---
PT CONTIUES TO C/O OF 8-9/10 PAIN TO LEFT ANKLE RADIATING INTO LOWER LEG, MD GRANADO AWARE.
[2020-02-08] MEDS ORDERED: methylPREDNISolone SS 125 MG/2 ML VIAL IVP ONE (03:35)
[2020-02-08] MEDS ORDERED: diphenhydrAMINE 50 MG/ML VIAL IVP ONE (03:35)
--- NOTE | 2020-02-08 03:55 | NUR ---
CONSENT SIGNED FOR CT WITH IV CONTRAST. PT PREMEDICATED FOR IODINE ALLERGY. PT TAKEN TO CT VIA GURNEY
--- NOTE | 2020-02-08 04:11 | NUR ---
PT RETURNED FROM CT. PLACED BACK ON BEDSIDE MONITOR
--- NOTE | 2020-02-08 04:16 | NUR ---
PT DENIES ANY ISSUES AT THIS TIME FROM THE IV CONTRAST. NO ITCHING, SOB, OR RASH. WILL CONTINUE TO MONITOR.
[2020-02-08] MEDS ORDERED: VANCOMYCIN 1,000 MG in DEXTROSE 5% 250 ML IV ONE (05:15)
--- NOTE | 2020-02-08 05:15 | NUR ---
PT WAS TO BE ADMITTED TO HOSPITAL, PT SAYS HES NOT ABLE TO STAY AND AGRESS TO SIGN AN AMA FORM. MD GRANADO AWARE
[2020-02-08] MEDS ORDERED: HYDROcodone/APAP 10/325 MG 1 TAB TAB PO STA (05:41)
[2020-02-08] MEDS ORDERED: HYDROcodone/APAP 10/325 MG 1 TAB TAB ONE (05:42)
[2020-02-08 06:06] VITALS: BP 121/72
--- NOTE | 2020-02-08 06:07 | NUR ---
Patient does not wish to proceed with medical care recommended by DR GRANADO. Patient given information related to possible complications, up to and including , which could occur as a result of leaving hospital at this time. Patient verbalizes understanding of risks involved leaving against medical advice. Patient has signed AMA form.
== END 2020-02-08 05:45 | disposition left against medical advice (07) ==
LOC: MED 23:01
DX: L03.116 Cellulitis of left lower limb (principal); M60.9 Myositis, unspecified; R22.42 Localized swelling, mass and lump, left lower limb; I10 Essential (primary) hypertension; I51.89 Other ill-defined heart diseases; J45.909 Unspecified asthma, uncomplicated; R56.9 Unspecified convulsions; Z88.1 Allergy status to other antibiotic agents; Z88.2 Allergy status to sulfonamides; Z88.8 Allergy status to other drugs, medicaments and biological substances; Z91.013 Allergy to seafood; Z79.899 Other long term (current) drug therapy
CPT/HCPCS: 36415; 71045; 73590; 73701; 80048; 81003; 82550; 82553; 84484; 85025; 85610; 85651; 86140; 93005; 93971; 96361; 96374; 96375; 96376; 99285; J1200; J2270; J2930; J7030; Q9967

== ENCOUNTER 2020-02-19 11:55 | Inpatient (IN) | payer OTHER, SELFPAY ==
[~2020-02-19] VITALS: Ht 175.3 cm; Wt 122.5 kg
[2020-02-19] MEDS ORDERED: VANCOMYCIN 1,000 MG in DEXTROSE 5% 250 ML IV ONE (12:25)
[2020-02-19] MEDS ORDERED: MORPHINE SULFATE 10 MG/ML VIAL IVP ONE (12:25)
[2020-02-19 12:30] VITALS: BP 127/76
--- NOTE | 2020-02-19 12:35 | NUR ---
45/M BIB c/o left leg pain, SWELLING x 10 days .medhx: gallbladder removal, necrotizing fascitis, CHF, DVT, PE, asthma .PT DENIES ANY FEVER, CP, SOB, OR COUGH AT THIS TIME; PATIENT STATES PAIN OF 10/10 AT THIS TIME.
[2020-02-19] MEDS ORDERED: cefTRIAXone 1,000 MG VIAL ONE (12:50)
[2020-02-19] MEDS ORDERED: VANCOMYCIN 1,000 MG VIAL ONE (12:50)
[2020-02-19 12:57] LABS: BASOPHILS % (AUTO) 0.2 % (0.0-2.0); HEMATOCRIT 39.5 % (36-52); HEMOGLOBIN 13.7 g/dL (12.0-18.0); LYMPHOCYTES # (AUTO) 1.5 K/uL (2.0-11.5); LYMPHOCYTES % (AUTO) 28.3 % (20.5-51.1); MEAN CORPUSCULAR HEMOGLOBIN 32 pg (27-31); MEAN CORPUSCULAR HGB CONC 35 g/dL (33-37); MEAN CORPUSCULAR VOLUME 92.3 fL (80-94); MONOCYTES # (AUTO) 0.6 K/uL (0.8-1.0); MONOCYTES % (AUTO) 10.6 % (1.7-9.3); NEUTROPHILS # (AUTO) 3.2 K/uL (1.8-7.7); NEUTROPHILS % (AUTO) 60.9 % (42.2-75.2); PLATELET COUNT (AUTO) 267 K/uL (140-450); RED BLOOD CELL COUNT(AUTO) 4.28 MIL/uL (4.20-6.10); WHITE BLOOD COUNT (AUTO) 5.3 K/uL (4.8-10.8)
--- NOTE | 2020-02-19 13:30 | NUR ---
covid narayan swab collected.
[2020-02-19 13:46] LABS: ANION GAP 11.3 (8-16); CARBON DIOXIDE 27.9 mmol/L (21-32); POTASSIUM 4.2 mmol/L (3.5-5.1)
[2020-02-19] MEDS ORDERED: ZOLPIDEM 5 MG TAB PO PRN (15:30)
[2020-02-19] MEDS ORDERED: KCL 20 MEQ/WATER INJ PREMIX 200 ML IV PRN (15:30)
[2020-02-19] MEDS ORDERED: POTASSIUM CHLORIDE 10 MEQ TABER PO PRN (15:30)
[2020-02-19] MEDS ORDERED: IBUPROFEN 400 MG TAB PO PRN (15:30)
[2020-02-19] MEDS: LEVOFLOXACIN 500 MG/D5W PREMIX 100 ML IV SCH (15:30)
[2020-02-19] MEDS ORDERED: ONDANSETRON 4 MG/2 ML VIAL IVP PRN (15:30)
[2020-02-19] MEDS ORDERED: MAG SULF 2000 MG/WATER PREMIX 50 ML IV PRN (15:30)
[2020-02-19] MEDS ORDERED: LORazepam 1 MG TAB PO PRN (15:30)
[2020-02-19] MEDS ORDERED: MAGNESIUM OXIDE 400 MG TAB PO PRN (15:30)
[2020-02-19] MEDS ORDERED: ACETAMINOPHEN 325 MG TAB PO PRN (15:30)
[2020-02-19] MEDS: HYDROcodone/APAP 5/325 MG 1 TAB TAB PO PRN (19:02)
--- NOTE | 2020-02-19 19:30 | NUR ---
RECEIVED REPORT FROM MICHELLE DAVID FOR CONTINUITY OF CARE
--- NOTE | 2020-02-19 21:00 | NUR ---
PT IN BED, AWAKE, ALERT. ON ROOM AIR. WILL CONTINUE TO MONITOR.
--- NOTE | 2020-02-19 23:12 | NUR ---
PT AWAKE, ALERT. ON ROOM AIR. WILL CONTINUE TO MONITOR.
[2020-02-20] MEDS: MORPHINE SULFATE 4 MG/ML SYR IVP PRN ×3 (00:56→16:11)
--- NOTE | 2020-02-20 00:56 | NUR ---
PT C/O OF 10/10 PAIN. MORPHINE PRN GIVEN.
--- NOTE | 2020-02-20 03:06 | NUR ---
LUNCH RELIEF FOR PRIMARY NURSE ---- PROVIDED PT W/ URINAL AT THIS TIME.
--- NOTE | 2020-02-20 05:30 | NUR ---
PT IN BED, EYES CLOSED, RESPIRATIONS EVEN AND UNLABORED. CHEST RISE IS SYMMETRICAL. WILL CONTINUE TO MONITOR.
--- NOTE | 2020-02-20 07:21 | NUR ---
REPORT GIVEN TO MILE DAVID FOR CONTINUITY OF CARE
--- NOTE | 2020-02-20 07:22 | NUR ---
Report received from JOANN Oconnell sail repair person for continuity of care.
--- NOTE | 2020-02-20 08:00 | NUR ---
BIBS from home with c/o left LE pain and swelling. Was here in ED a few days ago for same, received Bactrim/Keflex, left AMA. States it is worse now. Allergic to iodine, alprazolam, benazepril, numerous food allergies-seafood, bananas, walnuts. 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 VVS, in NAD, HOB elevated. IV patent with #20g left hand, saline locked. Resp even and unlabored, RA sat 96-98%. shot hole driller with SR Awaiting M/S bed/room, will continue to monitor
[2020-02-20 08:50] LABS: HEMATOCRIT 39.6 % (36-52); HEMOGLOBIN 13.5 g/dL (12.0-18.0); MEAN CORPUSCULAR HEMOGLOBIN 32 pg (27-31); MEAN CORPUSCULAR VOLUME 92.5 fL (80-94); RED BLOOD CELL COUNT(AUTO) 4.28 MIL/uL (4.20-6.10); WHITE BLOOD COUNT (AUTO) 4.6 K/uL (4.8-10.8)
[2020-02-20 08:51] LABS: BASOPHILS % (AUTO) 0.3 % (0.0-2.0); LYMPHOCYTES # (AUTO) 1.3 K/uL (2.0-11.5); LYMPHOCYTES % (AUTO) 29.5 % (20.5-51.1); MEAN CORPUSCULAR HGB CONC 34 g/dL (33-37); MONOCYTES # (AUTO) 0.6 K/uL (0.8-1.0); MONOCYTES % (AUTO) 12.4 % (1.7-9.3); NEUTROPHILS # (AUTO) 2.8 K/uL (1.8-7.7); NEUTROPHILS % (AUTO) 57.8 % (42.2-75.2); PLATELET COUNT (AUTO) 245 K/uL (140-450)
[2020-02-20] MEDS: DOCUSATE SODIUM 100 MG GELCAP PO SCH (09:00)
--- NOTE | 2020-02-20 09:10 | NUR ---
Cardiac diet tray given to patient for breakfast
--- NOTE | 2020-02-20 09:23 | NUR ---
Patient moved to [facility] for further care
[2020-02-20] MEDS: ENOXAPARIN 40 MG/0.4 ML SYR SUBQ SCH (09:38)
[2020-02-20 09:52] LABS: CHOL/HDL RATIO 4.5 (1-4.5); LDL (CALC) 109.8 mg/dL (60-100); MAGNESIUM 2.6 mg/dL (1.8-2.4); PHOSPHORUS 3.7 mg/dL (2.5-4.9)
--- NOTE | 2020-02-20 09:58 | NUR ---
Morphine 4mg IVP for 10/10 leg pain. Will continue to monitor
[2020-02-20] MEDS ORDERED: FURO-570 PO (10:52)
[2020-02-20] MEDS ORDERED: LOSA50TA57 PO (10:54)
[2020-02-20] MEDS ORDERED: CYCL10TA13 PO (11:08)
[2020-02-20] MEDS ORDERED: FLUT1DSK2 IH (11:08)
[2020-02-20] MEDS ORDERED: [UNRECOGNIZED DRUG - CODE] PO (11:08)
[2020-02-20] MEDS ORDERED: PREG100C PO (11:08)
[2020-02-20] MEDS ORDERED: BACL10TA4 PO (11:08)
[2020-02-20] MEDS ORDERED: PANT40EC PO (11:08)
[2020-02-20] MEDS ORDERED: METH-1681 PO (11:08)
[2020-02-20] MEDS ORDERED: METH5TAB5 PO (11:08)
--- NOTE | 2020-02-20 11:32 | NUR ---
SOCIAL WORK NOTE: Patient's Orientation Person Situation Place Time Information Provided By PATIENT Comments SW WAS UNABLE TO MEET PATIENT AT BEDSIDE DUE TO MEDICAL CONDITION. SW COMPLETED ASSESSMENT TELEPHONICALLY. Blintze Roller, Realtionship and Phone Number LEAH MARQUEZ [phone] Healthcare Power of Roads Superintendent No Does Patient Have a POLST No Identifying Problems No Social Work Triggers Is A Social Work Consult Needed No Mandate Report Filed No Explanation Of Identifying Problems PATIENT IS A 45-YEAR-OLD MALE ADMITTED FOR CELLULITIS OF LEG. PATIENT HAS PMHX OF ASTHMA, CHF, HYPERTENSION, AND SEIZURES. PATIENT DENIED SUBSTANCE ABUSE OR MENTAL HEALTH HISTORY. Admitted From Home Pre-Admission Level Of Functioning Status Independent/Ambulatory Prior Resources/Services Used In Last 12 Months No Prior Resources Used Prior DME No Prior DME Used Dialysis Comments N/A Living Situation Lives With Family House Patient Had Caregiver No Home Support No Caregiver Issues Financial Issues No Known Financial Issue Referral To The Financial Counselor Needed No Factors/Needs No D/C Needs Identified Pt/Rep Participated In Discharge Plan Yes Patient/Family Agress With Discharge Plan Yes Discharge Plan Comments TENTATIVE DISCHARGE PLAN IS FOR PATIENT TO RETURN HOME. DC Plan Status Initiated
--- NOTE | 2020-02-20 13:09 | NUR ---
Patient brought cardiac diet tray for lunch, patient in hallway and hesitant to remove mask to eat, provided tri-fold screen to provide as much distance between HW and patient, ate 75% of meal, tolerated well
[2020-02-20] MEDS: LEVOFLOXACIN 500 MG/D5W PREMIX 100 ML IV SCH (16:09)
--- NOTE | 2020-02-20 16:11 | NUR ---
DISCHARGE PLANNING: THIS IS A 45 Y/O MALE PATIENT FROM HOME, WHO CAME IN DUE TO COMPLEX REGIONAL PAIN SYNDROME. PAST MEDICAL HISTORY INCLUDE NECROTIZING FASCIITIS TO LOWER LEFT EXTREMITY COMPARTMENT SYNDROME WITH FOOT DROP, CHF. INITIAL DIAGNOSIS OF CELLULITIS OF LEG. CURRENT LABS INCLUDE WBC 4.6, H/H 13.5/39.6, NA/K 137/4.2, BUN/CREA 17/1.0. RAPID COVID TEST NEGATIVE. ROOM AIR, O2 SAT 98%. ON LEVAQUIN. DC PLAN PENDING ON PATIENT'S RESPONSE TO TREATMENT. Addendum: 02/22/20 at 1202 by Sandra Gonzalez RECEIVED A CALL FROM PRIMARY RN NICOLA INFORMING ME THAT PATIENT IS REQUESTING TO SPEAK TO ME. CONTACTED ROOM EXTENSION, NO ANSWER. ABLE TO REACH HIM ON HIS CELL PHONE AT [phone] AND HAD A LENGTHY CONVERSATION WITH HIM. HE STATED HE WANTS TO FILE A GRIEVANCE REGARDING THE CARE HE IS GETTING AND BEFORE HE CALLS PUBLIC HEALTH HE WANTED TO SPEAK TO ME FIRST. HE STATED THAT HE IS SCARED FOR HIMSELF ROBIN THE VIRUS BECAUSE WE ARE NOT SWABBING OUR PATIENTS ON DC. HE STATED "NOW I HAVE TO SELF QUARANTINE FOR 14 DAYS AND WAIT IF I DEVELOP SYMPTOMS." I EXPLAINED TO HIM THAT EVEN IN OTHER HOSPITALS THEY DO NOT SWAB PATIENTS BEFORE DC. HE ALSO STATED "THAT IS WHY THIS VIRUS IS SPREADING LIKE CRAZY". HE ALSO MENTIONED THAT OUR NURSES OUR INCOMPETENT AND DOES NOT KNOW WHAT THEY ARE DOING, ONE NURSE SAYS ONE THING AND THEN ANOTHER SAYS ANOTHER THING. HERE ARE THE OTHER COMPLAINTS HE MENTIONED. -SHARING THERMOMETER, BP CUFF WITH OTHER PATIENTS -COLD FOOD -LOUD AND NOISY STAFF (DAY SHIFT). HE STATED THEY ARE LAUGHING, SCREAMING AND YELLING IN THE HALLWAY -PAIN MEDICATIONS NOT GIVEN ON TIME -ATTENDING DOC NOT PAYING ATTENTION TO WHATEVER HE IS TELLING HIM DON MADE AWARE.
--- NOTE | 2020-02-20 16:14 | NUR ---
Dr. Sandhu is evaluating the patient at bedside.
[2020-02-20] MEDS ORDERED: VANCOMYCIN PER PHARMACY MC PRN (18:50)
--- NOTE | 2020-02-20 19:40 | NUR ---
Report received from JOANN Moreno for continuation of care.
--- NOTE | 2020-02-20 19:40 | NUR ---
Detailed report given to JOANN Wayneaccounting teacherweight shifter. Questions answered, orders and meds reviewed.
[2020-02-20] MEDS: PIPERACILLIN/TAZOBACTAM 3.375 GM in DEXTROSE 5% 50 ML IV SCH (20:27)
--- NOTE | 2020-02-20 20:37 | NUR ---
Pt provided jello and water at this time for comfort.
--- NOTE | 2020-02-20 21:08 | NUR ---
REMOVED PT DINNER FROM BEDSIDE, PT ATE 85% OF MEAL.
[2020-02-20] MEDS: VANCOMYCIN HCL 1.25 GM in DEXTROSE 5% 250 ML IV SCH (21:53)
--- NOTE | 2020-02-20 22:21 | NUR ---
Patient will be admitted to care of DR. AMARO. Admited to [facility]. Will go to room 104B. Belongings list completed. Report to JOANN AVINA.
[2020-02-20 22:50] VITALS: BP 124/87
--- NOTE | 2020-02-20 22:50 | NUR ---
RECEIVED PATIENT FROM ER FOR CONTINUITY OF CARE. AAOX4. RESPIRATIONS EVEN, UNLABORED. C/O LEFT LOWER LEG PAIN. WILL MEDICATE ORDERED. SKIN ASSESSMENT COMPLETED. LEFT LOWER LEG CELLULITIS NOTED. ABDOMEN SOFT, NONTENDER, NONDISTENDED. BOWEL SOUNDS ACTIVE X4 QUADRANTS. PATIENT IS CONTINENT OF B/B. UNABLE TO AMBULATE DUE TO LEFT LEG PAIN. PLAN OF CARE DISCUSSED. PATIENT ORIENTED TO ROOM/STAFF AND CALL LIGHT. MRSA SCREEN COMPLETED. CALL LIGHT WITHIN REACH. WILL CONTINUE TO MONITOR.
--- NOTE | 2020-02-20 22:50 | NUR ---
PT TRANSFERRED TO BED 104B VIA TJ AVINA RN MADE AWARE OF PT TRANSFERRED TO ROOM AT THIS TIME.
[2020-02-20] MEDS ORDERED: PIPERACILLIN/TAZOBACTAM 3.375 GM VIAL IV ONE (23:20)
--- NOTE | 2020-02-20 23:50 | NUR ---
PATIENT RESTING COMFORTABLY IN BED. CALL LIGHT WITHIN REACH.
[2020-02-21] MEDS: MORPHINE SULFATE 4 MG/ML SYR IVP PRN ×3 (00:30→22:25)
[2020-02-21] MEDS: HYDROcodone/APAP 5/325 MG 1 TAB TAB PO PRN ×3 (00:40→16:56)
--- NOTE | 2020-02-21 01:00 | NUR ---
MADE ROUNDS. PATIENT IS ASLEEP. NO S/S ACUTE DISTRESS. CALL LIGHT WITHIN REACH.
--- NOTE | 2020-02-21 03:51 | NUR ---
PATIENT IS ASLEEP. NO S/S ACUTE DISTRESS. CALL LIGHT WITHIN REACH.
[2020-02-21 04:00] VITALS: BP 136/67
[2020-02-21] MEDS ORDERED: PIPERACILLIN/TAZOBACTAM 3.375 GM VIAL IV ONE ×2 (04:14→04:17)
[2020-02-21] MEDS: PIPERACILLIN/TAZOBACTAM 3.375 GM in DEXTROSE 5% 50 ML IV SCH ×4 (04:19→21:15)
--- NOTE | 2020-02-21 07:25 | NUR ---
RECEIVED BEDSIDE REPORT FROM PRIVATE BRANCH EXCHANGE REPAIRER NURSE. PATIENT IS ALERT AND ORIENTED X4. RESPIRATIONS ARE EVEN AND UNLABORED. NO S/S OF RESPIRATORY DISTRESS NOTED. ON ROOM AIR. HAS LEFT LOWER LEG CELLULITIS WITH NO COMPLAIN OF PAIN. IV SITE ON LFA 20 G. INTACT AND PATENT. PLAN OF CARE WAS DISCUSSED. SAFETY PROTOCOL IN PLACE. BED IN LOW POSITION AND CALL LIGHT WITHIN REACH. WILL CONTINUE TO MONITOR.
--- NOTE | 2020-02-21 07:50 | NUR ---
PATIENT HAS BEEN SCREENED AND CATEGORIZED HIGH NUTRITION RISK. PATIENT WILL BE SEEN WITHIN 1-2 DAYS OF ADMISSION. 02/19/20 - 02/21/20 CRISTA HERNANDEZ MBA, RD
[2020-02-21 08:04] VITALS: BP 141/90
[2020-02-21 08:49] LABS: BASOPHILS % (AUTO) 0.2 % (0.0-2.0); HEMATOCRIT 40.7 % (36-52); HEMOGLOBIN 14.1 g/dL (12.0-18.0); LYMPHOCYTES # (AUTO) 1.7 K/uL (2.0-11.5); LYMPHOCYTES % (AUTO) 29.4 % (20.5-51.1); MEAN CORPUSCULAR HEMOGLOBIN 32 pg (27-31); MEAN CORPUSCULAR HGB CONC 35 g/dL (33-37); MEAN CORPUSCULAR VOLUME 92.6 fL (80-94); MONOCYTES # (AUTO) 0.6 K/uL (0.8-1.0); MONOCYTES % (AUTO) 9.5 % (1.7-9.3); NEUTROPHILS # (AUTO) 3.6 K/uL (1.8-7.7); NEUTROPHILS % (AUTO) 60.9 % (42.2-75.2); PLATELET COUNT (AUTO) 276 K/uL (140-450); RED BLOOD CELL COUNT(AUTO) 4.39 MIL/uL (4.20-6.10); RED CELL DISTRIBUTION WIDTH 12.8 % (11.6-13.7); WHITE BLOOD COUNT (AUTO) 5.9 K/uL (4.8-10.8)
[2020-02-21] MEDS: DOCUSATE SODIUM 100 MG GELCAP PO SCH ×2 (09:00→09:55)
[2020-02-21 09:13] LABS: MAGNESIUM 2.7 mg/dL (1.8-2.4); PHOSPHORUS 4.5 mg/dL (2.5-4.9)
--- NOTE | 2020-02-21 09:37 | NUR ---
02/21/20 RD INITIAL ASSESSMENT COMPLETED. PLEASE REFER TO NUTRITION ASSESSMENT UNDER CARE ACTIVITY FOR ESTIMATED NUTRITIONAL NEEDS. RD RECOMMENDATIONS: 1. RECOMMEND CONTINUE CARDIAC DIET 2. F/U 3-5 DAYS; MODERATE RISK CRISTA HERNANDEZ MBA, RD
[2020-02-21] MEDS: VANCOMYCIN HCL 1.25 GM in DEXTROSE 5% 250 ML IV SCH ×2 (09:55→21:16)
[2020-02-21] MEDS: ENOXAPARIN 40 MG/0.4 ML SYR SUBQ SCH (09:59)
--- NOTE | 2020-02-21 09:59 | NUR ---
PT WAS GIVEN THE SCHEDULED AM MEDICATIONS NOW. WILL MONITOR PT.
--- NOTE | 2020-02-21 11:30 | NUR ---
PT'S IV LINE WAS INFILTRATED NOW.
--- NOTE | 2020-02-21 13:00 | NUR ---
SCHEDULED ZOSYN IV PB WAS NOT GIVEN D/T PT'S IV LINE WAS INFILTRATED AND 4 ATTEMPTS OF RE-INSERTION WAS UNSUCCESSFUL. AWAITING FOR PICC LINE NURSE TO INSERT A MIDLINE TO PT.
[2020-02-21] MEDS ORDERED: ALBUTEROL 0.083% 2.5 MG/3 ML NEBU INH SCH (13:45)
--- NOTE | 2020-02-21 14:00 | NUR ---
DR. ACOSTA CAME TO THE PT'S ROOM AND TALKED TO PT, MD WAS INFORMED THAT 4 ATTEMPTS WERE TRIED FOR IV INSERTION AND MD SAID TO HAVE A MIDLINE INSERTION.
--- NOTE | 2020-02-21 14:15 | NUR ---
HELD ANTIBIOTICS AND IV MEDICATIONS DUE TO INFILTRATED IV SITE. NOT ABLE TO REINSERT IV MULTIPLE TIMES. WAITING FOR PICC LINE NURSE TO INSERT MIDLINE.
--- NOTE | 2020-02-21 14:25 | NUR ---
SPOKE TO DEWEY TO REQUEST A PIC LINE ORDER. AWAITING CALL BACK FROM MARTY PICC LINE NURSE
--- NOTE | 2020-02-21 14:35 | NUR ---
DR. MORA CALLED AND ASKED ABOUT INFORMATION REGARDING PT, MD WAS INFORMED THAT DR. ACOSTA MADE AN ORDER FOR A MIDLINE INSERTION FOR THE PT AND DR. MORA IS AMENABLE WELL. WILL CALL PICC LINE NURSE.
--- NOTE | 2020-02-21 14:43 | NUR ---
MARTY CALLED BACK. ETA 1 HR AND A HALF FROM
[2020-02-21 16:00] VITALS: BP 135/80
--- NOTE | 2020-02-21 16:56 | NUR ---
PATIENT C/C OF LEG PAIN 08/16. MEDICATED WITH NORCO PO PRN PER ORDERED.
--- NOTE | 2020-02-21 18:45 | NUR ---
MIDLINE WAS INSERTED TO PT NOW ON THE RT UA.
[2020-02-21] MEDS: BACLOFEN 10 MG TAB PO SCH (19:14)
[2020-02-21] MEDS: LEVOFLOXACIN 500 MG/D5W PREMIX 100 ML IV SCH (19:14)
--- NOTE | 2020-02-21 19:20 | NUR ---
ENDORSED PT TO BARGEMAN NURSE FOR CONTINUITY OF CARE.
--- NOTE | 2020-02-21 19:30 | NUR ---
RECEIVED PT IN STABLE CONDITION FROM AM NURSE. MED SURG PT.AWAKE,ALERT AND ORIENTED X4, WITH NO C/O ANY DISCOMFORT NOR PAIN NOTED AT THIS TIME . WITH NEW PICC LINE ON THE RT UPPER ARM DOUBLE LUMEN . LEFT LEG SWOLLEN . . PLAN OF CARE DISCUSSED AND VERBALIZED UNDERSTANDING. FREQ ROUNDS NEEDED. BED ON LOWEST POSITION. SIDE RAILS UP X2. CALL LIGHT AND URINAL WITHIN REACH/ WILL CONTINUE TO MONITOR.
[2020-02-21 20:00] VITALS: BP 154/95
--- NOTE | 2020-02-21 20:40 | NUR ---
PT SEEN AND ASSESSED. FOUND PT ON ROOM AIR WITH SPO2 OF 97%. PT IS IN NO RESPIRATORY DISTRESS AT THIS TIME. WILL CONTINUE TO MONITOR PT.
--- NOTE | 2020-02-21 21:27 | NUR ---
DR. MORA CAME AND SEEN PT. WITH SOME NEW ORDERS MADE.
--- NOTE | 2020-02-21 23:00 | NUR ---
MADE ROUNDS. PT IS AWAKE. ASSISTED TO REPOSITIONED LT LEG.
--- NOTE | 2020-02-22 01:00 | NUR ---
MADE ROUNDS. PT IS ASLEEP. NO S/S OF ANY PAIN NOTED AT THIS TIME.
--- NOTE | 2020-02-22 03:05 | NUR ---
CHECKED ON PT. SLEEPING WELL. NO S/S OF ANY DISCOMFORT NOTED.
[2020-02-22 04:00] VITALS: BP 142/90
[2020-02-22] MEDS ORDERED: CLINDAMYCIN 600 MG/4 ML VIAL ONE (04:33)
[2020-02-22] MEDS: CLINDAMYCIN 600 MG in DEXTROSE 5% 50 ML IV SCH ×2 (04:54→13:40)
--- NOTE | 2020-02-22 05:00 | NUR ---
CLEOCIN IVPB STARTED. WILL MONITOR FOR ANY REACTION .
--- NOTE | 2020-02-22 07:20 | NUR ---
RECEIVED BEDSIDE REPORT FROM LDR RN NURSE. PATIENT IS ALERT AND ORIENTED X4. RESPIRATIONS ARE EVEN AND UNLABORED. NO S/S OF RESPIRATORY DISTRESS NOTED. ON ROOM AIR. HAS LEFT LOWER LEG CELLULITIS WITH NO COMPLAIN OF PAIN. HAS MARCELO MIDLINE. MIDLINE IS INTACT AND PATENT. PLAN OF CARE WAS DISCUSSED. SAFETY PROTOCOL IN PLACE. BED IN LOW POSITION AND CALL LIGHT WITHIN REACH. WILL CONTINUE TO MONITOR.
--- NOTE | 2020-02-22 07:35 | NUR ---
ENDORSED PT IN STABLE CONDITION TO AM NURSE.
[2020-02-22 08:07] LABS: BASOPHILS % (AUTO) 0.2 % (0.0-2.0); HEMATOCRIT 37.9 % (36-52); HEMOGLOBIN 13.2 g/dL (12.0-18.0); LYMPHOCYTES # (AUTO) 1.1 K/uL (2.0-11.5); LYMPHOCYTES % (AUTO) 15.8 % (20.5-51.1); MEAN CORPUSCULAR HEMOGLOBIN 32 pg (27-31); MEAN CORPUSCULAR HGB CONC 35 g/dL (33-37); MEAN CORPUSCULAR VOLUME 90.6 fL (80-94); MONOCYTES # (AUTO) 0.5 K/uL (0.8-1.0); MONOCYTES % (AUTO) 7.8 % (1.7-9.3); NEUTROPHILS # (AUTO) 5.2 K/uL (1.8-7.7); NEUTROPHILS % (AUTO) 76.2 % (42.2-75.2); PLATELET COUNT (AUTO) 247 K/uL (140-450); RED BLOOD CELL COUNT(AUTO) 4.18 MIL/uL (4.20-6.10); RED CELL DISTRIBUTION WIDTH 12.9 % (11.6-13.7); WHITE BLOOD COUNT (AUTO) 6.8 K/uL (4.8-10.8)
[2020-02-22] MEDS: DOCUSATE SODIUM 100 MG GELCAP PO SCH (09:00)
[2020-02-22 09:21] LABS: ANION GAP 12.1 (8-16); CARBON DIOXIDE 25.6 mmol/L (21-32); CREATININE 0.9 mg/dL (0.6-1.3); POTASSIUM 3.7 mmol/L (3.5-5.1)
[2020-02-22] MEDS: VANCOMYCIN HCL 1.25 GM in DEXTROSE 5% 250 ML IV SCH (09:40)
--- NOTE | 2020-02-22 09:40 | NUR ---
PT WAS GIVEN THE SCHEDULED AM MEDICATIONS NOW, PARAMETERS CHECKED. WILL MONITOR PT.
[2020-02-22] MEDS: BACLOFEN 10 MG TAB PO SCH ×2 (09:41→13:41)
[2020-02-22] MEDS: ENOXAPARIN 40 MG/0.4 ML SYR SUBQ SCH (09:48)
--- NOTE | 2020-02-22 09:48 | NUR ---
PT WAS GIVEN LOVENOX,SUBQ ON THE ABDOMEN. PLATELET IS [id number], WILL MONITOR PT.
[2020-02-22 12:14] LABS: MAGNESIUM 2.4 mg/dL (1.8-2.4); PHOSPHORUS 3.9 mg/dL (2.5-4.9)
[2020-02-22] MEDS ORDERED: ALBUTEROL HFA MDI 90 MCG/ACTUATION 8 GM INH PRN (13:15)
[2020-02-22] MEDS ORDERED: PREGABALIN 50 MG CAP PO PRN (13:15)
[2020-02-22] MEDS ORDERED: IPRATROPIUM 0.02% 0.5 MG/2.5 ML NEBU INH PRN (13:15)
--- NOTE | 2020-02-22 14:10 | NUR ---
PATIENT REQUESTED TO BE DISCHARGED FROM THE HOSPITAL. NOTIFIED MD. ADVICE PATIENT TO SIGN AMA FORM. PATIENT SIGNED AMA FORM. AWAITING TO PICK PATIENT UP.
[2020-02-22] MEDS ORDERED: GABAPENTIN PO SCH (17:00)
[2020-02-22] MEDS ORDERED: CYCLOBENZAPRINE 10 MG TAB PO SCH (17:00)
[2020-02-22] MEDS ORDERED: methocarbamoL 500 MG TAB PO SCH (17:00)
[2020-02-22] MEDS ORDERED: METHADONE HCL 5 MG PO SCH (18:00)
[2020-02-22] MEDS ORDERED: THEOPHYLLINE 300 MG TABER PO SCH (21:00)
[2020-02-22] MEDS ORDERED: GABAPENTIN 300 MG CAP PO SCH (21:00)
[2020-02-22] MEDS ORDERED: FLUTICASONE NASAL 50 MCG/ACTUATION 16 GM BTL NS SCH (21:00)
[2020-02-23] MEDS ORDERED: FUROSEMIDE 40 MG TAB PO SCH (09:00)
[2020-02-23] MEDS ORDERED: METOPROLOL SUCCINATE 50 MG TABER PO SCH (09:00)
[2020-02-23] MEDS ORDERED: LIDOCAINE 5% 1 EA PATCH TP SCH (09:00)
[2020-02-23] MEDS ORDERED: MONTELUKAST SODIUM 10 MG TAB PO SCH (09:00)
[2020-02-23] MEDS ORDERED: LOSARTAN 50 MG TAB PO SCH (09:00)
[2020-02-23] MEDS ORDERED: PANTOPRAZOLE 40 MG TABEC PO SCH (09:00)
[2020-02-23] MEDS ORDERED: DULoxetine 30 MG CAPDR PO SCH (09:00)
== END 2020-02-22 16:45 | disposition left against medical advice (07) | DRG 383 ==
LOC: MED 11:55 → MMU 15:26 → MTU 02-20 21:30
PROVIDERS: ADMIT Hospitalist; ATTEND Hospitalist
PROC: 05HY33Z Insertion of Infusion Device into Upper Vein, Percutaneous Approach (ICD-10-PCS; principal; 2020-02-21)
DX: L03.116 Cellulitis of left lower limb (principal); I11.0 Hypertensive heart disease with heart failure; I50.9 Heart failure, unspecified; G90.50 Complex regional pain syndrome I, unspecified; E66.9 Obesity, unspecified; J45.909 Unspecified asthma, uncomplicated; G40.909 Epilepsy, unspecified, not intractable, without status epilepticus; Z20.828 Contact with and (suspected) exposure to other viral communicable diseases; I89.0 Lymphedema, not elsewhere classified; Z68.39 Body mass index [BMI] 39.0-39.9, adult; Z91.041 Radiographic dye allergy status; Z88.8 Allergy status to other drugs, medicaments and biological substances; Z91.013 Allergy to seafood; Z86.711 Personal history of pulmonary embolism; Z86.718 Personal history of other venous thrombosis and embolism; Z87.39 Personal history of other diseases of the musculoskeletal system and connective tissue; Z53.29 Procedure and treatment not carried out because of patient's decision for other reasons; M72.6 Necrotizing fasciitis
CPT/HCPCS: 36415; 76881; 80048; 80202; 83036; 83605; 83735; 84100; 85025; 85651; 86140; 87040; 87081; 93971; 96365; 96366; 96367; 96375; 99285; J0696; J1650; J1956; J2270; J2543; J3370; J3490; J7060